=== PATIENT | female | born 1935 | race Caucasian/White ===

== ENCOUNTER 2021-03-01 08:09 | Emergency (ER) | payer MEDICARE, OTHER ==
[~2021-03-01] VITALS: Ht 167.6 cm; Wt 70.9 kg
[2021-03-01 08:40] LABS: HEMATOCRIT 42.7 % (37.0-47.0); HEMOGLOBIN 13.6 g/dl (12.0-16.0); IMMATURE GRANULOCYTES 0.8 % (0.0-5.0); MEAN CELL VOLUME 90.3 fL CALC (80.0-100.0); MEAN CORPUSCULAR HGB 28.8 pG CALC (26.0-32.0); MEAN CORPUSCULAR HGB CONC 31.9 g/dL CAL (32.0-36.0); NEUT# 7.26 thou/uL (2.00-7.15); RED BLOOD COUNT 4.73 mill/uL (4.20-5.60); RED CELL DISTRI WIDTH 13.9 % (11.5-15.5)
[2021-03-01 08:57] LABS: ALBUMIN 3.7 g/dL (3.2-5.0); ALKALINE PHOSPHATASE 108 u/l (38-126); ANION GAP 9 (6-22 (CALC)); BILIRUBIN, TOTAL 0.5 mg/dL (0.0-1.4); BUN 21 mg/dL (8-23); BUN/CREATININE RATIO 25 (12-20 (CALC)); CARBON DIOXIDE 28 mmol/l (22-30); CHLORIDE 106 mmol/l (95-108); CREATININE 0.8 mg/dL (0.5-1.0); GFR > 60 ML/MIN (>=60 (CALC)); GFR FOR AFR.AMER. > 60 ML/MIN (>=60 (CALC)); POTASSIUM 3.8 mmol/l (3.5-5.1); SGOT/AST 27 u/l (9-36); SODIUM 139 mmol/l (137-146); TOTAL PROTEIN 7.6 g/dL (6.3-8.2)
[2021-03-01 09:36] LABS: URINE BILIRUBIN - DIPSTICK NEGATIVE (NEGATIVE); URINE BLOOD DIPSTICK TRACE-INTACT (NEGATIVE); URINE COLOR YELLOW; URINE GLUCOSE - DIPSTICK NEGATIVE (NEGATIVE); URINE KETONE NEGATIVE (NEGATIVE); URINE PH 6.5 (4.5-8.0); URINE PROTEIN - DIPSTICK NEGATIVE (NEG-TRACE); URINE UROBILINOGEN - DIPSTICK 0.2 E.U./dL (0.2)
[2021-03-01 09:37] LABS: URINE LEUK ESTERASE LARGE (NEGATIVE); URINE NITRITE - DIPSTICK POSITIVE (Negative)
[2021-03-01 09:38] LABS: URINE BACTERIA MODERATE hpf; URINE EPITHELIAL CELLS FEW EPI/hpf (0-FEW); URINE RBC 0-2 RBC/hpf (0-5)
[2021-03-01 11:01] VITALS: BP 160/68
--- NOTE | 2021-03-04 07:57 | NUR ---
FINAL BLOOD CX RESULTS SHOW STAPH COHNII IN 1/4 VIALS. REPORTED TO ANN AT [facility] AND FAXED TO [phone]
== END 2021-03-01 11:18 | disposition short-term general hospital (02) ==
LOC: ED 08:09
PROVIDERS: Family Medicine
PROC: 0T9B70Z Drainage of Bladder with Drainage Device, Via Natural or Artificial Opening (ICD-10-PCS; principal; 2021-03-01)
DX: S72.142A Displaced intertrochanteric fracture of left femur, initial encounter for closed fracture (principal); S42.292A Other displaced fracture of upper end of left humerus, initial encounter for closed fracture; N39.0 Urinary tract infection, site not specified; R42 Dizziness and giddiness; I10 Essential (primary) hypertension; B96.20 Unspecified Escherichia coli [E. coli] as the cause of diseases classified elsewhere; W19.XXXA Unspecified fall, initial encounter; Y92.009 Unspecified place in unspecified non-institutional (private) residence as the place of occurrence of the external cause

== ENCOUNTER 2021-08-25 11:54 | Observation (INO) | payer MEDICARE, OTHER ==
[~2021-08-25] VITALS: Ht 167.6 cm; Wt 65.8 kg
--- NOTE | 2021-08-25 12:10 | NUR ---
PATIENT ROOMED FROM LOBBY. PROVIDER NOTIFIED OF PATIENT STATUS.
[2021-08-25] MEDS ORDERED: COZAAR50 MG PO (12:14)
[2021-08-25] MEDS ORDERED: CLONIDINE HYDR0.1 M1 PO (12:15)
[2021-08-25] MEDS ORDERED: PANTOPRAZOLE SO40 M3 PO (12:16)
[2021-08-25] MEDS ORDERED: VERAPAMIL HCL80 MG PO (12:16)
[2021-08-25 12:30] LABS: HEMATOCRIT 45.8 % (37.0-47.0); HEMOGLOBIN 14.5 g/dl (12.0-16.0); IMMATURE GRANULOCYTES 0.1 % (0.0-5.0); MEAN CELL VOLUME 88.6 fL CALC (80.0-100.0); MEAN CORPUSCULAR HGB CONC 31.7 g/dL CAL (32.0-36.0); NEUT# 4.48 thou/uL (2.00-7.15); RED BLOOD COUNT 5.17 mill/uL (4.20-5.60); RED CELL DISTRI WIDTH 15.1 % (11.5-15.5)
[2021-08-25 12:42] LABS: ALBUMIN 4.3 g/dL (3.2-5.0); ALKALINE PHOSPHATASE 148 u/l (38-126); ANION GAP 13 (6-22 (CALC)); BILIRUBIN, TOTAL 0.4 mg/dL (0.0-1.4); BUN 12 mg/dL (8-23); BUN/CREATININE RATIO 17 (12-20 (CALC)); CARBON DIOXIDE 26 mmol/l (22-30); CHLORIDE 105 mmol/l (95-108); CREATININE 0.7 mg/dL (0.5-1.0); GFR FOR AFR.AMER. > 60 ML/MIN (>=60 (CALC)); GFR OTHER RACES > 60 ML/MIN (>=60 (CALC)); POTASSIUM 3.5 mmol/l (3.5-5.1); SGOT/AST 22 u/l (9-36); SODIUM 140 mmol/l (137-146); TOTAL PROTEIN 8.1 g/dL (6.3-8.2)
--- NOTE | 2021-08-25 15:41 | NUR ---
PT RESTING IN BED
--- NOTE | 2021-08-25 19:59 | NUR ---
REPORT CALLED TO CASA ON FLOOR
--- NOTE | 2021-08-25 19:59 | NUR ---
PT TRANSFERRED TO FLOOR
[2021-08-25 20:02] VITALS: BP 165/60
--- NOTE | 2021-08-25 20:30 | NUR ---
PATIENT ADMITTED FROM ER VIA STRETCHER WITH ER STAFF IN ATTENDANCE. PATIENT TRRANSFERRED TO THE BED. AWAKE ALERT AND ORIENTEDX3. PATIENT ADMITTED FOR CHEST AND HTN. STATES THAT SHE WENT TO THE DOCTOR THIS MORNING AND HER BP WAS HIGH-DOCTOR REFERRED HER TO COME TO THE ER AND SHE WAS BROUGHT IN BY HER DAUGHTER. STATES THAT SHE HAS VERY LITTLE "CHEST TIGHTNESS" AT THIS TIME. TELE MONITOR IN PLACE AND READING SR-82. SALINE LOCK TO RAC INTACT. LUNG ARE CLEAR. ABD IS SOFT WITH ACTIVE BS. STATES THAT HER LAST BM WAS YESTERDAY 08/24/21. PATIENT DOES HAVE SOME URINE INCONT AND WEARS BREIF FOR PROTECTION. NO PEDAL EDEMA NOTED. PULSES ARE PALPABLE. ORIENTED PATIENT TO ROOM AND SURROUNDINGS. INSTRUCTED PATIENT ON USE OF NURSE CALL LIGHT SYSTEM AND TV REMOTE. PATIENT IS [place]LLA. SAFETY PRECAUTIONS REINFORCED. CALL LIGHT IN REACH. WILL CONT TO MONITOR.
[2021-08-26] VITALS (9 sets, daily range): BP systolic 126–184; BP diastolic 41–78
--- NOTE | 2021-08-26 | NUR ---
PATIENT CALLED AND RESPONDED TO ROOM-ASSISTED TO THE BR TO VOID AND THEN BACK TO BED. STEADY ON HER FEET WITH ASSIST-BREIF WAS REPLACED FOR PROTECT PER PATIENT. TELE MONITOR IN PLACE-LAST READING WAS SR-64. NO CHEST PAIN AT THIS TIME. LAST TROP WAS NEG. SAFETY PRECAUTIONS REINFORCED. CALL LIGHT IN REACH. WILL CONT TO MONITOR.
[2021-08-26 04:10] LABS: CHOLESTEROL HDL RATIO 3.7 (<4.4 (CALC)); MAGNESIUM 1.8 mg/dL (1.6-2.3)
--- NOTE | 2021-08-26 04:58 | NUR ---
PATIENT RESTING IN BED-VS TAKEN ANBD RECORDED. TELE MONITOR IN PLACE-SR-72. SALINE LOCK INTACT RAC. NO COMPLAINTS AT THIS TIME. CALL LIGHT IN REACH. WILL CONT TO MONITOR,
--- NOTE | 2021-08-26 06:12 | NUR ---
PATIENT RESTING INBED WITH EYES CLOSED. RESPS ARE EVEN AND UNLABORED. TELE MONITOR IN PLACE-LAST READING SR 720. CALL LIGHT IN REACH. WILL CONT TO MONITOR.
--- NOTE | 2021-08-26 08:00 | NUR ---
GOT REPORT FROM JUNIOR BRAND MANAGER NURSE. PATIENT ASSESSED, AOX3. PATIENT BLOOD PRESSURE ELEVATED. GIVEN MEDICATION TO HELP IT. PATIENT DENIES ANY CHEST PAIN OR DISCOMFORT AT THIS TIME. CALL LIGHT AND BEDSIDE TABLE WITH IN REACH. ADVISED TO CALL IF ANY PROBLEMS. PATIENT VERBALIZED UNDERSTANDING.
--- NOTE | 2021-08-26 09:36 | NUR ---
CALLED DR. VOGT OFFICE REGARDING CONSULTATION ON THIS PT. SPOKE TO SADAF GAVE INFORMATION ON PT. WAS TOLD SHE WOULD LET DR VOGT KNOW ABOUT THE CONSULTATION.
--- NOTE | 2021-08-26 11:43 | NUR ---
Patient is screened for PT intervention and no needs are identified at this time
--- NOTE | 2021-08-26 12:00 | NUR ---
PATIENT SLEEPING. CALL LIGHT AND BEDSIDE TABLE WITH IN REACH
--- NOTE | 2021-08-26 16:00 | NUR ---
PATIENT WATCHING TV, NO SXS OF DISTRESS. NO NEEDS AT THIS TIME.
--- NOTE | 2021-08-26 19:45 | NUR ---
PATIENT SITTING UP IN THE BED AT THIS TIME-AWAKE ALERT AND ORIENTEDX3. O2 VIA NASAL CANNULA IN PLACE AT 2LPM WITH O2 SAT OF 93%. TELE MONITOR IN PLACE WITH LAST READING SR-70''S. LUNGS ARE CLEAR, ABD IS SOFT WITH ACTIVE BS. STATES THAT SHE DID HAVE BM TODAY AND DENIES DIFFICULTY WITH URINATION. DOES WEAR BREIF FOR STRESS INCONT. C/O SLIGHT HEADACHE-MEDICATED WITH TYLENOL 650MG PO FOR 3/10 PAIN SCALE. SAFETY PRECAUTIONS REINFORCED. CALL LIGHT IN REACH. WILL CONT TO MONITOR.
--- NOTE | 2021-08-26 21:34 | NUR ---
PATIENT SITTING UP IN BED AT THIS TIME-AWAKE ALERT AND ORIENTEDX3. O2 VIA NASAL CANNULA IN PLACE AT 2LPM WITH O2 SAT OF 93%. TELE MONITOR IN PLACE WITH LAST READING SR-70'S. LUNGS ARE CLEAR. ABD IS SOFT WITH ACVTIVE BS. STATES THAT SHE DID HAVE BM TODAY. DENIES ANY DIFFICULTY WITH URINATION. DOES WEAR BREIF FOR PROTECTION FOR STRESS INCONT. C/O SLIGHT HEADACHE. MEDICATED WITH TYLENOL 650MG PO FOR 3/10 PAIN SCALE. SAFETY PRECAUTIONS REINFORCED. CALL LIGHT IN REACH. WILL CONT TO MONITOR.
--- NOTE | 2021-08-27 00:07 | NUR ---
PATIENT RESTING IN BED AT THIS TIME WITH EYES CLOSED. RESPS ARE EVEN AND UNLABORED. TELE MONITOR IN PLACE. CALL LIGHT IN REACH. WILL CONT TO MONITOR.
[2021-08-27 00:29] VITALS: BP 141/54
[2021-08-27 04:33] VITALS: BP 156/67
--- NOTE | 2021-08-27 04:43 | NUR ---
PATIENT UP TO BR WITH ASSIST AND VOIDED 175CC OF YELLOW URINE. MION ASSIST BACK TO BED. DAILY WEIGHT ON BED SCALE WAS 65.8. TELE MONITOR IN PLACE WITH LAST READING BEING SR-60. SALINE LOCK TO RAC INTACT. CALL LIGHT IN REACH. WILL CONT TO MONITOR,.
[2021-08-27 05:47] LABS: HEMATOCRIT 40.4 % (37.0-47.0); HEMOGLOBIN 12.9 g/dl (12.0-16.0); IMMATURE GRANULOCYTES 0.4 % (0.0-5.0); MEAN CELL VOLUME 89.2 fL CALC (80.0-100.0); MEAN CORPUSCULAR HGB 28.5 pG CALC (26.0-32.0); MEAN CORPUSCULAR HGB CONC 31.9 g/dL CAL (32.0-36.0); NEUT# 4.31 thou/uL (2.00-7.15); RED BLOOD COUNT 4.53 mill/uL (4.20-5.60); RED CELL DISTRI WIDTH 15.1 % (11.5-15.5)
[2021-08-27 06:07] LABS: ANION GAP 9 (6-22 (CALC)); BUN 19 mg/dL (8-23); BUN/CREATININE RATIO 26 (12-20 (CALC)); CARBON DIOXIDE 26 mmol/l (22-30); CHLORIDE 108 mmol/l (95-108); CREATININE 0.7 mg/dL (0.5-1.0); GFR FOR AFR.AMER. > 60 ML/MIN (>=60 (CALC)); GFR OTHER RACES > 60 ML/MIN (>=60 (CALC)); MAGNESIUM 1.9 mg/dL (1.6-2.3); POTASSIUM 4.1 mmol/l (3.5-5.1); SODIUM 139 mmol/l (137-146)
[2021-08-27 06:26] VITALS: BP 140/60
--- NOTE | 2021-08-27 08:00 | NUR ---
GOT REPORT FROM NETWORK SPECIALIST NURSE. PATIENT IS IN BED WATCHING TV AND COLORING. ASSESSED. AOX3. DENIES ANY CHEST PAIN OR TIGHTNESS AT THIS TIME. WINIFRED STATES THAT SHE FEELS REALLY GOOD AND IN HOPES OF GOING HOME TODAY. CALL LIGHT AND BEDSIDE TABLE WITHIN REACH. ADVISE TO CALL IF SHE NEEDS ANYTHING. PATIENT VERBALIZED UNDERSTANDING.
[2021-08-27 10:37] VITALS: BP 140/63
[2021-08-27] MEDS ORDERED: LOSARTAN POTAS100 MG PO (12:34)
[2021-08-27] MEDS ORDERED: VERAPAMIL HCL180 M5 PO (12:35)
[2021-08-27] MEDS ORDERED: LASIX 20 MG TAB20 MG PO (12:36)
--- NOTE | 2021-08-27 14:04 | NUR ---
Discharge instructions given. Patient verbalizes understanding of same. Discharged in stable condition via Wheelchair to Home with family. All belongings sent with pt.
[2021-08-27] MEDS ORDERED: METOPROLOL SUCC50 MG PO (14:06)
[2021-08-27] MEDS ORDERED: LIPITOR80 M1 PO (14:12)
== END 2021-08-27 14:04 | disposition home health service (06) ==
LOC: ED 11:54 → ED-I 12:29 → ED 12:29 → ED-I 13:02 → ED 13:41 → MS2 13:42
PROVIDERS: Family Medicine; Nurse Practitioner; ADMIT Internal Medicine; ATTEND Internal Medicine
DX: I20.9 Angina pectoris, unspecified (principal); I44.7 Left bundle-branch block, unspecified; I47.9 Paroxysmal tachycardia, unspecified; I10 Essential (primary) hypertension; K21.9 Gastro-esophageal reflux disease without esophagitis; I65.23 Occlusion and stenosis of bilateral carotid arteries; R79.89 Other specified abnormal findings of blood chemistry; Z20.822 Contact with and (suspected) exposure to COVID-19
CPT/HCPCS: J1650; Q9967

== ENCOUNTER 2021-11-11 16:42 | Observation (INO) | payer MEDICARE, OTHER ==
[~2021-11-11] VITALS: Ht 167.6 cm; Wt 64.0 kg
[2021-11-11] VITALS (22 sets, daily range): BP systolic 131–181; BP diastolic 50–67
[~2021-11-11 16:42] MED LIST: CLONIDINE HYDR0.1 M1 PO; COZAAR50 MG PO; LASIX 20 MG TAB20 MG PO; LIPITOR80 M1 PO; LOSARTAN POTAS100 MG PO; METOPROLOL SUCC50 MG PO; PANTOPRAZOLE SO40 M3 PO; VERAPAMIL HCL180 M5 PO; VERAPAMIL HCL80 MG PO
--- NOTE | 2021-11-11 16:55 | NUR ---
PT ARRIVED VIA EMS, PT IN ROOM ON MONITOR AWAITING LAB RESULTS.
[2021-11-11 16:59] LABS: HEMOGLOBIN 11.9 g/dl (12.0-16.0); IMMATURE GRANULOCYTES 0.2 % (0.0-5.0); MEAN CELL VOLUME 85.7 fL CALC (80.0-100.0); MEAN CORPUSCULAR HGB 28.3 pG CALC (26.0-32.0); MEAN CORPUSCULAR HGB CONC 33.1 g/dL CAL (32.0-36.0); NEUT# 6.76 thou/uL (2.00-7.15); RED BLOOD COUNT 4.2 mill/uL (4.20-5.60); RED CELL DISTRI WIDTH 14.2 % (11.5-15.5)
[2021-11-11 17:20] LABS: ALKALINE PHOSPHATASE 119 u/l (38-126); ANION GAP 13 (6-22 (CALC)); BILIRUBIN, TOTAL 0.3 mg/dL (0.0-1.4); BUN 23 mg/dL (8-23); BUN/CREATININE RATIO 28 (12-20 (CALC)); CARBON DIOXIDE 25 mmol/l (22-30); CHLORIDE 107 mmol/l (95-108); CREATININE 0.8 mg/dL (0.5-1.0); GFR FOR AFR.AMER. > 60 ML/MIN (>=60 (CALC)); GFR OTHER RACES > 60 ML/MIN (>=60 (CALC)); POTASSIUM 3.3 mmol/l (3.5-5.1); SGOT/AST 24 u/l (9-36); SODIUM 141 mmol/l (137-146); TOTAL PROTEIN 7.7 g/dL (6.3-8.2)
--- NOTE | 2021-11-11 17:20 | NUR ---
PT IN ROOM ON MONITOR AWAITING LAB RESULTS.
--- NOTE | 2021-11-11 18:08 | NUR ---
PT TO BE ADMITTED
--- NOTE | 2021-11-11 19:02 | NUR ---
PT IN ROOM ON MONITOR AWAITING BED FOR ADMISSION.
--- NOTE | 2021-11-11 19:56 | NUR ---
PT IN ROOM ON MONITOR PENDING ADMISSION, WILL CONT TO MONITOR.
[2021-11-11] MEDS ORDERED: ASPIRIN81 MG PO (20:27)
[2021-11-11] MEDS ORDERED: FUROSEMIDE20 MG PO (20:27)
[2021-11-11] MEDS ORDERED: LOSARTAN POTASS50 MG PO (20:27)
[2021-11-11] MEDS ORDERED: METOPROLOL TART50 MG PO (20:29)
--- NOTE | 2021-11-11 20:45 | NUR ---
PUREWICK APPLIED. REPOSITIONED/PILLOW GIVEN.
--- NOTE | 2021-11-11 21:20 | NUR ---
ATTEMPT TO CALL REPORT TO [employer] MADE, UNABLE TO TAKE REPORT AT THIS TIME.
--- NOTE | 2021-11-11 22:00 | NUR ---
REPORT CALLED TO SOFIA TAMAYO.
--- NOTE | 2021-11-11 22:03 | NUR ---
REPORT GIVEN TO JOSE TAMAYO WHO WILL BE TRANSPORTING PT TO FLOOR.
--- NOTE | 2021-11-11 22:31 | NUR ---
Admission Note Report Given to: SOFIA TAMAYO Transported by: Wheelchair X Stretcher Transported with: X Nurse Transporter X Patent IV O2 X Transmission Maintenance Supervisor Location: ICU X MS2 PT ADMITTED TO [facility], TRANSPORTED VIA STRETCHER BY KHLOE TAMAYO, ON TELE.
[2021-11-12] VITALS (9 sets, daily range): BP systolic 133–167; BP diastolic 43–100
--- NOTE | 2021-11-12 | NUR ---
PT ADMITTED DUE TO SYNCOPAL EPISODE. PT ALERT AND ORIENTED, BUT VERY HARD OF HEARING. PT DENIES PAIN AT THIS TIME. PT EDUCATION PROVIDED REGARDING FALL PREVENTION AND TO CALL FOR ASSISTANCE WHEN GETTING OUT OF BED. PTS BED ALARM ON. VITAL SIGNS ARE WITHIN NORMAL LIMITS. CALL LIGHT WITHIN REACH. PT BEING CLOSELY MONITORED.
--- NOTE | 2021-11-12 07:21 | NUR ---
BEDSIDE SHIFT CHANGE REPORT WITH NIGHT RN PERFORMED, PT AWAKE ALERT AND ORIENTED RESTING IN BED, DENIES PAIN/DISCOMFORT, QUESTIONS ANSWERED, TELE MONITOR IN PLACE, CALL BERNARD IN REACH AND BED LOCKED IN LOWEST POSITION.
[2021-11-12 07:56] LABS: HEMATOCRIT 34.6 % (37.0-47.0); HEMOGLOBIN 11.2 g/dl (12.0-16.0); IMMATURE GRANULOCYTES 0.1 % (0.0-5.0); MEAN CELL VOLUME 86.5 fL CALC (80.0-100.0); MEAN CORPUSCULAR HGB CONC 32.4 g/dL CAL (32.0-36.0); NEUT# 6.16 thou/uL (2.00-7.15); RED CELL DISTRI WIDTH 14.2 % (11.5-15.5)
[2021-11-12 08:22] LABS: ALBUMIN 3.3 g/dL (3.2-5.0); ALKALINE PHOSPHATASE 114 u/l (38-126); ANION GAP 12 (6-22 (CALC)); BILIRUBIN, TOTAL 0.3 mg/dL (0.0-1.4); BUN 20 mg/dL (8-23); BUN/CREATININE RATIO 26 (12-20 (CALC)); CARBON DIOXIDE 23 mmol/l (22-30); CHLORIDE 109 mmol/l (95-108); CREATININE 0.8 mg/dL (0.5-1.0); GFR FOR AFR.AMER. > 60 ML/MIN (>=60 (CALC)); GFR OTHER RACES > 60 ML/MIN (>=60 (CALC)); HDL CHOLESTEROL 49 mg/dL (>=40); MAGNESIUM 1.6 mg/dL (1.6-2.3); POTASSIUM 3.9 mmol/l (3.5-5.1); SGOT/AST 22 u/l (9-36); SODIUM 140 mmol/l (137-146); TOTAL TRIGLYCERIDES 98 mg/dl (30-149); VLDL CHOLESTROL 20 mg/dl (0-48 (CALC))
[2021-11-12 08:26] LABS: CALCULATED LDLCHOLESTEROL 69 mg/dL (62-129 (CALC)); CHOLESTEROL HDL RATIO 2.8 (<4.4 (CALC)); TOTAL CHOLESTEROL 138 mg/dl (0-199); TOTAL PROTEIN 6.1 g/dL (6.3-8.2)
--- NOTE | 2021-11-12 12:00 | NUR ---
INFORMED OF CAROTID ULTRA SOUND, TRANSPORTED OFF UNIT VIA W/C BY VOLUNTEER, HAD PROCEDURE DONE AND TRANSPORTED BACK TO UNIT, SETTLED IN BED, CALL BERNARD IN REACH.
--- NOTE | 2021-11-12 16:04 | NUR ---
RELAXING IN BED AFTER TOILETTING, DOING CREATIVE TALKS NOW OF COLORING AND ENJOYING THE ACTIVITY, ALL NEEDS MET/ADDRESSED.
--- NOTE | 2021-11-12 19:00 | NUR ---
PT IS UPSET ABOUT BEING SERVED PUREED FOODS, STATES SHE DOES NOT HAVE CHEWING OR SWALLOWING DIFFICULTIES, HAS NOT BEEN EATING AND NEEDS REGULAR FOODS, WILL ADDRESS CONCERNS REQUESTED AND INFORM MD AND DIETARY.
--- NOTE | 2021-11-12 19:15 | NUR ---
PT OFFERED TV DINNER WHICH SHE GREATLY APPRECIATED.
--- NOTE | 2021-11-12 19:45 | NUR ---
PATIENT RESTING IN BED. ALERT AND ORIENTED. ABLE TO MAKE NEEDS KNOWN. DENIES ANY PAIN. NO DISTRESS NOTED. ASSESSMENT COMPLETE. PATIENT ABLE TO MOVE HERSELF UP IN BED. BED REMAINS IN LOW POSITION. CALL LIGHT IN REACH.
--- NOTE | 2021-11-12 21:45 | NUR ---
NOTIFIED MD OF PATIENTS HR RANGING FROM 39-MID 40S. PATIENT ASYMPTOMATIC. NO COMPLAINTS. MD TO PUT NEW ORDER IN EMAR.
--- NOTE | 2021-11-12 22:12 | NUR ---
CALLED MD TO INFORM HIS OF PHARMACY CALLING WANTING CLARIFICATION ON MEDICATION DOSE.
--- NOTE | 2021-11-12 22:53 | NUR ---
NOTIFIED MD OF DOSE FOR GLUCAGON WAS MAX DOSE FOR HOSPITAL. INFORMED MD OF WHAT HEART RATE WAS RUNNING ON TELE. MD GAVE ORDER TO DC MEDICATION. PATIENT TO CONTINUE TO BE MONITORED. VS STABLE AT THIS TIME.
[2021-11-13 00:09] VITALS: BP 119/39
--- NOTE | 2021-11-13 00:30 | NUR ---
PATIENT RESTING IN BED. NO COMPLAINTS VOICED AT THIS TIME. BED REMAINS IN LOW POSITION. CALL LIGHT IN REACH.
[2021-11-13 03:16] VITALS: BP 132/47
--- NOTE | 2021-11-13 04:18 | NUR ---
PATIENT RESTING IN BED WITH HOB ELEVATED. NO SIGNS OF DISTRESS. NO COMPLAINTS OF PAIN. PATIENT REMAINS ALERT. BED REMAINS IN LOW POSITION. CALL LIGHT IN REACH.
[2021-11-13 05:16] LABS: HEMOGLOBIN 10.8 g/dl (12.0-16.0); IMMATURE GRANULOCYTES 0.2 % (0.0-5.0); MEAN CELL VOLUME 86.6 fL CALC (80.0-100.0); MEAN CORPUSCULAR HGB 28.3 pG CALC (26.0-32.0); MEAN CORPUSCULAR HGB CONC 32.7 g/dL CAL (32.0-36.0); NEUT# 5.52 thou/uL (2.00-7.15); RED BLOOD COUNT 3.81 mill/uL (4.20-5.60); RED CELL DISTRI WIDTH 14.3 % (11.5-15.5)
[2021-11-13 05:37] LABS: ALBUMIN 3.4 g/dL (3.2-5.0); ALKALINE PHOSPHATASE 117 u/l (38-126); ANION GAP 9 (6-22 (CALC)); BILIRUBIN, TOTAL 0.3 mg/dL (0.0-1.4); BUN 24 mg/dL (8-23); BUN/CREATININE RATIO 30 (12-20 (CALC)); CARBON DIOXIDE 25 mmol/l (22-30); CHLORIDE 110 mmol/l (95-108); CREATININE 0.8 mg/dL (0.5-1.0); GFR FOR AFR.AMER. > 60 ML/MIN (>=60 (CALC)); GFR OTHER RACES > 60 ML/MIN (>=60 (CALC)); POTASSIUM 4.1 mmol/l (3.5-5.1); SGOT/AST 24 u/l (9-36); SODIUM 140 mmol/l (137-146); TOTAL PROTEIN 6.5 g/dL (6.3-8.2)
[2021-11-13 07:00] VITALS: BP 169/59
[2021-11-13 07:04] VITALS: BP 169/59
[2021-11-13 07:22] VITALS: BP 177/65
--- NOTE | 2021-11-13 08:00 | NUR ---
GOT REPORT FROM WORKFORCE PLANNING ANALYST NURSE. PATIENT ASSESSED. AOX4. PATIENT IS EATING BF WITH NO COMPLAINTS. STATES THAT SHE IS DOING GREAT AND IS READY TO GO HOME. ADVISED THAT THE DOCTOR IS IN THE ROUNDS NOW AND WILL BE IN TO DISCUSS PLAN OF CARE. PATIENT VERBALIZED UNDERSTANDING. I ASSISTED PATIENT TO BSC TO VOID AND ASSISTED HER BACK TO BED. PATIENT HAS CALL LIGHT AND BEDSIDE TABLE WITH IN REACH. ADVISED TO CALL IF SHE NEEDED ANYTHING. PATIENT VERBALIZED UNDERSTANDING.
[2021-11-13 10:21] VITALS: BP 157/54
--- NOTE | 2021-11-13 12:00 | NUR ---
PATIENT IS BACK INTO BED RESTING. NO SXS OF DISTRESS. CALL LIGHT AND BEDSIDE TABLE WITH IN REACH. FALL PRECAUTIONS IN PLACE.
--- NOTE | 2021-11-13 15:00 | NUR ---
Discharge instructions given. Patient verbalizes understanding of same. Discharged in stable condition via Wheelchair to Home with family. All belongings sent with pt.
== END 2021-11-13 15:00 | disposition home health service (06) ==
LOC: ED 16:42 → ED-I 18:10 → ED 19:28 → MS2 19:29
PROVIDERS: Family Medicine; Internal Medicine; Nurse Practitioner; ADMIT Internal Medicine; ATTEND Internal Medicine
DX: R55 Syncope and collapse (principal); R07.89 Other chest pain; R00.1 Bradycardia, unspecified; I44.7 Left bundle-branch block, unspecified; E87.6 Hypokalemia; I11.0 Hypertensive heart disease with heart failure; I50.9 Heart failure, unspecified; K21.9 Gastro-esophageal reflux disease without esophagitis; I65.23 Occlusion and stenosis of bilateral carotid arteries; Z94.7 Corneal transplant status; Z20.822 Contact with and (suspected) exposure to COVID-19
CPT/HCPCS: G0378

== ENCOUNTER 2022-01-26 10:16 | Observation (INO) | payer MEDICARE, OTHER ==
[2022-01-26] VITALS (12 sets, daily range): BP systolic 110–146; BP diastolic 43–88
[~2022-01-26] VITALS: Ht 167.6 cm; Wt 65.0 kg
[~2022-01-26 10:16] MED LIST changes: +ASPIRIN81 MG PO; +FUROSEMIDE20 MG PO; +LOSARTAN POTASS50 MG PO; +METOPROLOL TART50 MG PO
--- NOTE | 2022-01-26 10:16 | NUR ---
PATIENT TO ED VIA EMS. ALERT AND ORIENTED X3.
[2022-01-26 10:33] LABS: HEMATOCRIT 35.8 % (37.0-47.0); HEMOGLOBIN 11.6 g/dl (12.0-16.0); IMMATURE GRANULOCYTES 0.2 % (0.0-5.0); MEAN CELL VOLUME 88.6 fL CALC (80.0-100.0); MEAN CORPUSCULAR HGB 28.7 pG CALC (26.0-32.0); MEAN CORPUSCULAR HGB CONC 32.4 g/dL CAL (32.0-36.0); NEUT# 7.25 thou/uL (2.00-7.15); RED BLOOD COUNT 4.04 mill/uL (4.20-5.60); RED CELL DISTRI WIDTH 14.5 % (11.5-15.5)
--- NOTE | 2022-01-26 10:36 | NUR ---
MED REC COMPLETED WITH PATIENT, DOES NOT KNOW ALL OF HER HOME MEDS
[2022-01-26 10:47] LABS: ALBUMIN 3.9 g/dL (3.2-5.0); ALKALINE PHOSPHATASE 122 u/l (38-126); ANION GAP 11 (6-22 (CALC)); BILIRUBIN, TOTAL 0.3 mg/dL (0.0-1.4); BUN 22 mg/dL (8-23); BUN/CREATININE RATIO 26 (12-20 (CALC)); CARBON DIOXIDE 26 mmol/l (22-30); CHLORIDE 109 mmol/l (95-108); CREATININE 0.9 mg/dL (0.5-1.0); GFR FOR AFR.AMER. > 60 ML/MIN (>=60 (CALC)); GFR OTHER RACES 59 ML/MIN (>=60 (CALC)); POTASSIUM 3.6 mmol/l (3.5-5.1); SGOT/AST 39 u/l (9-36); SODIUM 142 mmol/l (137-146); TOTAL PROTEIN 7.4 g/dL (6.3-8.2)
--- NOTE | 2022-01-26 11:36 | NUR ---
URINE SAMPLE COLLECTED. FAMILY AT BEDSIDE. UPDATED ON PLAN OF CARE. VERBAL UNDERSTANDING
[2022-01-26 12:05] LABS: URINE BILIRUBIN - DIPSTICK NEGATIVE (NEGATIVE); URINE BLOOD DIPSTICK NEGATIVE (NEGATIVE); URINE COLOR YELLOW; URINE GLUCOSE - DIPSTICK NEGATIVE (NEGATIVE); URINE KETONE NEGATIVE (NEGATIVE); URINE LEUK ESTERASE NEGATIVE (NEGATIVE); URINE PROTEIN - DIPSTICK NEGATIVE (NEG-TRACE); URINE UROBILINOGEN - DIPSTICK 0.2 E.U./dL (0.2)
[2022-01-26 12:06] LABS: URINE NITRITE - DIPSTICK POSITIVE (Negative)
[2022-01-26 12:07] LABS: URINE BACTERIA MODERATE hpf; URINE EPITHELIAL CELLS FEW EPI/hpf (0-FEW)
--- NOTE | 2022-01-26 12:20 | NUR ---
PATIENT CLEANED OF INCONTENANCE
--- NOTE | 2022-01-26 13:09 | NUR ---
PATIENT PROSPECTING DRILLER HELPER LIGHT REQUESTING TO BE SEEN BY PROVIDER. AT BEDSIDE
--- NOTE | 2022-01-26 14:30 | NUR ---
800 ML OF URINE EMPTIED FROM CONTAINER.
--- NOTE | 2022-01-26 14:40 | NUR ---
Admission Note Report Given to: BELKIS BAZAN Transported by: Wheelchair X Stretcher Transported with: X Nurse Transporter X Patent IV O2 X Hall Tender Location: ICU X MS2 PATIENT BELONGINGS SENT WITH PATIENT, INCUDING FUEL ASSEMBLER BAG, CHILD SHOES AND BLACK JACKET
--- NOTE | 2022-01-26 15:00 | NUR ---
REPORT RECEIVED FROM BENI. PT ARRIVED IN UNIT AT APPROXIMATELY 1500 TRANSPORTED VIA STRETCHER AND TRANSFERRED TO BED, ALERT AND ORIENTED X 3, NO C/O PAIN/DISCOMFORT, ORIENED TO ROOM AND CALL BERNARD, SETTLED IN BED, NEEDS ADDRESSED, EDUCATED ON FALL PRECAUTIONS AND STATED UNDERSTANDING, WILL CONTINUE TO MONITOR.
--- NOTE | 2022-01-26 15:09 | NUR ---
Admission Note Report Given to: BELKIS BAZAN Transported by: Wheelchair X Stretcher Transported with: X Nurse Transporter X Patent IV O2 X Physics Faculty Member Location: ICU X MS2 PATIENT BELONGINGS SENT WITH PATIENT, SHIRT, SHOES, BACK PURSE.
--- NOTE | 2022-01-26 15:52 | NUR ---
I CALLED IN A PHYSICIAN CONSULTATION TO DR VOGT'S OFFICE ON 01/26/2022. I SPOKE WITH KURT AT 1551 hrs.
--- NOTE | 2022-01-26 19:15 | NUR ---
PER PATIENT HER DAUGHTER BROUGHT ALL HER MEDICATION IN TONIGHT AND SHE HAS HAD EVEYRTHING THAT WAS DUE TONIGHT.
--- NOTE | 2022-01-26 19:15 | NUR ---
REPORT RECEIVED FROM Alanna REYNAGA RN.
[2022-01-26] MEDS ORDERED: ATORVASTATIN CA80 MG PO (20:42)
[2022-01-26] MEDS ORDERED: METOPROLOL SUCC50 MG PO (20:45)
[2022-01-26] MEDS ORDERED: AMLODIPINE BESY10 MG PO (20:47)
[2022-01-26] MEDS ORDERED: ISOSORB MONO30 MG PO (20:47)
[2022-01-27] VITALS (10 sets, daily range): BP systolic 117–137; BP diastolic 42–60
--- NOTE | 2022-01-27 | NUR ---
PATIENT UP TO THE BATHROOM AT THIS TIME. EXPRESSES SOME CONCER REGARDING MORE FREQUENT BOWEL MOVEMENTS. ADVISED PATIENT THAT WE WOULD COLLECT THE NEXT STOOL.
--- NOTE | 2022-01-27 04:45 | NUR ---
PATIENT RESTING COMOFRTABLY. NO APPARENT DISTRESS NOTED. CALL LIGHT AND BEDSIDE TABLE WITHIN REACH.
--- NOTE | 2022-01-27 07:05 | NUR ---
REPORT FROM AMBER TAMAYO. ASSUMED PT CARE.
--- NOTE | 2022-01-27 08:20 | NUR ---
ORTHOSTATIC VS OBTAINED AT THIS TIME. NOTIFIED ALLAN HAND FORMER OF HR CHANGES. WILL CONTINUE TO MONITOR.
--- NOTE | 2022-01-27 12:10 | NUR ---
PT SITTING UP IN BED EATING LUNCH. NO APPARENT DISTRESS NOTED. RESPIRATIONS EVEN AND UNLABORED. PT DENIES ANY CURRENT WANTS OR NEEDS. CALL LIGHT WITHIN REACH. WILL CONTINUE TO MONITOR.
--- NOTE | 2022-01-27 16:29 | NUR ---
PT RESTING IN BED. NO APPARENT DISTRESS NOTED. PURWIK IN PLACE. CALL LIGHT WITHIN REACH. WILL CONTINUE TO MONITOR.
--- NOTE | 2022-01-27 19:05 | NUR ---
REPORT RECEIVED FROM Alanna RAIN RN
--- NOTE | 2022-01-27 19:59 | NUR ---
PATIENT ASSEMENT COMPLETED AT THIS TIME. PATIENT ASSITED TO BSC WITH STANDBY ASSITANCE X1. PATIENT DENIES ANY CURRENT PAIN/ NEEDS. CALL LIGHT AND BEDSIDE TABLE WITHIN REACH.
[2022-01-28] VITALS (7 sets, daily range): BP systolic 118–137; BP diastolic 42–60
--- NOTE | 2022-01-28 | NUR ---
PATIENT RESTING COMOFROTABLY. NO APPARENT DISTRESS NOTED. CALL LIGHT AND BEDSIDE TABLE WITHIN REACH.
--- NOTE | 2022-01-28 04:00 | NUR ---
PATIENT RESTING COOFRTABLY. DENIES ANY CURRENT NEEDS AT THIS TIME. CALL LIGHT AND BEDSIDE TABLE WTIHIN REACH.
[2022-01-28 05:16] LABS: HEMATOCRIT 34.4 % (37.0-47.0); HEMOGLOBIN 11.2 g/dl (12.0-16.0); MEAN CELL VOLUME 87.5 fL CALC (80.0-100.0); MEAN CORPUSCULAR HGB 28.5 pG CALC (26.0-32.0); MEAN CORPUSCULAR HGB CONC 32.6 g/dL CAL (32.0-36.0); RED BLOOD COUNT 3.93 mill/uL (4.20-5.60); RED CELL DISTRI WIDTH 14.6 % (11.5-15.5)
[2022-01-28 05:34] LABS: ALBUMIN 3.5 g/dL (3.2-5.0); ALKALINE PHOSPHATASE 119 u/l (38-126); ANION GAP 11 (6-22 (CALC)); BILIRUBIN, TOTAL 0.2 mg/dL (0.0-1.4); BUN 30 mg/dL (8-23); BUN/CREATININE RATIO 34 (12-20 (CALC)); CARBON DIOXIDE 24 mmol/l (22-30); CHLORIDE 110 mmol/l (95-108); CREATININE 0.9 mg/dL (0.5-1.0); GFR FOR AFR.AMER. > 60 ML/MIN (>=60 (CALC)); GFR OTHER RACES 59 ML/MIN (>=60 (CALC)); POTASSIUM 3.9 mmol/l (3.5-5.1); SGOT/AST 25 u/l (9-36); SODIUM 141 mmol/l (137-146); TOTAL PROTEIN 6.9 g/dL (6.3-8.2)
--- NOTE | 2022-01-28 07:30 | NUR ---
REPORT RECIEVED. PT ASSISTED TO SHOWER BY AID. PT AMBULATES WITH STEADY GAIT, DENIES OF ANY DIZZINESS.
--- NOTE | 2022-01-28 08:40 | NUR ---
PT RESTING IN SEMI FOLWERS POSITION.PT A/OX3. RESPIRATIONS EVEN AND UNLABORED ON ROOM AIR. LUNG SOUNDS CLEAR. HEART RHYTHM NORMAL WITH TELE IN PLACE. BOWELS ACTIVE. #22G RW PATENT. SKIN INTACT. ORTHOSTATIC COMPLETED, PT TOLERATED WELL.PT DENIES OF ANY PAINS OR DISCOMFORTS AT THIS TIME.PT ORIENTATED TO ROOM. BEAR HUGGER NOTED DUE TO PT C/O OF BEING COLD.ALL SAFTEY PRECAUTIONS ARE IN PLACE WITH CALL LIGHT IN REACH.
--- NOTE | 2022-01-28 10:15 | NUR ---
O2 SAT ON 3L IS 93%
[2022-01-28] MEDS ORDERED: LOSARTAN POTASS50 MG PO (11:04)
[2022-01-28] MEDS ORDERED: ERTAPENEM1 GM IV (11:06)
--- NOTE | 2022-01-28 12:33 | NUR ---
PT EDUCATED ON DC INSTRUCTIONS AND NEW MEDICAITONS. PT VERBLAIZED UNDERSTANDING. IV REMOVED WITH CATH INTACT. TELE REMOVED, ER INFORMED. TRANSPORTATION CALLED
--- NOTE | 2022-01-28 14:11 | NUR ---
Discharge instructions given. Patient verbalizes understanding of same. Discharged in stable condition via Wheelchair to Home with staff. All belongings sent with pt.
== END 2022-01-28 14:21 | disposition home health service (06) ==
LOC: ED 10:16 → ED-I 13:22 → ED 14:11 → MS2 14:12
PROVIDERS: Family Medicine; Nurse Practitioner Family; ADMIT Internal Medicine; ATTEND Internal Medicine
DX: I95.1 Orthostatic hypotension (principal); I11.0 Hypertensive heart disease with heart failure; I50.9 Heart failure, unspecified; N39.0 Urinary tract infection, site not specified; I44.7 Left bundle-branch block, unspecified; K21.9 Gastro-esophageal reflux disease without esophagitis; B96.20 Unspecified Escherichia coli [E. coli] as the cause of diseases classified elsewhere; Z16.12 Extended spectrum beta lactamase (ESBL) resistance; Z87.440 Personal history of urinary (tract) infections; Z94.7 Corneal transplant status
CPT/HCPCS: J1335

== ENCOUNTER 2022-04-10 09:17 | Observation (INO) | payer MEDICARE, OTHER ==
[2022-04-10] VITALS (21 sets, daily range): BP systolic 109–153; BP diastolic 50–67
[~2022-04-10] VITALS: Ht 167.6 cm; Wt 68.0 kg
[~2022-04-10 09:17] MED LIST changes: +AMLODIPINE BESY10 MG PO; +ATORVASTATIN CA80 MG PO; +ERTAPENEM1 GM IV; +ISOSORB MONO30 MG PO
[2022-04-10 09:59] LABS: BASO% 0.7 % (0-3); EOS% 4.7 % (0-8); HEMATOCRIT 36.1 % (37.0-47.0); HEMOGLOBIN 11.5 g/dl (12.0-16.0); IMMATURE GRANULOCYTES 0.1 % (0.0-5.0); LYMPH% 20.2 % (15-41); MEAN CELL VOLUME 85.1 fL CALC (80.0-100.0); MEAN CORPUSCULAR HGB 27.1 pG CALC (26.0-32.0); MEAN CORPUSCULAR HGB CONC 31.9 g/dL CAL (32.0-36.0); MONO% 8.7 % (2-13); NEUT# 6.13 thou/uL (2.00-7.15); NEUT% 65.6 % (42-76); RED BLOOD COUNT 4.24 mill/uL (4.20-5.60); RED CELL DISTRI WIDTH 15.2 % (11.5-15.5)
[2022-04-10 10:23] LABS: ALBUMIN 3.9 g/dL (3.2-5.0); ALKALINE PHOSPHATASE 109 u/l (38-126); ANION GAP 11 (6-22 (CALC)); BUN 18 mg/dL (8-23); BUN/CREATININE RATIO 18 (12-20 (CALC)); CARBON DIOXIDE 28 mmol/l (22-30); CHLORIDE 106 mmol/l (95-108); GFR FOR AFR.AMER. > 60 ML/MIN (>=60 (CALC)); GFR OTHER RACES 53 ML/MIN (>=60 (CALC)); LIPASE 54 u/l (23-300); POTASSIUM 3.8 mmol/l (3.5-5.1); SGOT/AST 27 u/l (9-36); SODIUM 141 mmol/l (137-146); TOTAL PROTEIN 7.3 g/dL (6.3-8.2)
[2022-04-10 10:29] LABS: BILIRUBIN, TOTAL 0.3 mg/dL (0.02-1.3)
[2022-04-10 10:55] LABS: URINE BILIRUBIN - DIPSTICK NEGATIVE (NEGATIVE); URINE BLOOD DIPSTICK NEGATIVE (NEGATIVE); URINE GLUCOSE - DIPSTICK NEGATIVE (NEGATIVE); URINE KETONE NEGATIVE (NEGATIVE); URINE LEUK ESTERASE NEGATIVE (NEGATIVE); URINE PROTEIN - DIPSTICK NEGATIVE (NEG-TRACE); URINE UROBILINOGEN - DIPSTICK 0.2 E.U./dL (0.2)
[2022-04-10 10:56] LABS: URINE COLOR STRAW; URINE NITRITE - DIPSTICK NEGATIVE (Negative)
[2022-04-10] MEDS ORDERED: TOPROL XL50 MG PO (12:54)
[2022-04-10] MEDS ORDERED: ESOMEPRAZOLE MA40 MG PO (15:17)
[2022-04-10] MEDS ORDERED: AMLODIPINE BESY10 MG PO (15:19)
[2022-04-11] VITALS (8 sets, daily range): BP systolic 95–135; BP diastolic 43–58
[2022-04-11 05:53] LABS: CHOLESTEROL HDL RATIO 2.8 (<4.4 (CALC)); MAGNESIUM 1.6 mg/dL (1.6-2.3)
[2022-04-12] VITALS (7 sets, daily range): BP systolic 99–148; BP diastolic 49–67
[2022-04-12 05:54] LABS: BASO% 0.7 % (0-3); EOS% 5.2 % (0-8); HEMATOCRIT 31.9 % (37.0-47.0); HEMOGLOBIN 10.5 g/dl (12.0-16.0); IMMATURE GRANULOCYTES 0.5 % (0.0-5.0); LYMPH% 24.7 % (15-41); MEAN CELL VOLUME 84.2 fL CALC (80.0-100.0); MEAN CORPUSCULAR HGB 27.7 pG CALC (26.0-32.0); MEAN CORPUSCULAR HGB CONC 32.9 g/dL CAL (32.0-36.0); NEUT# 6.27 thou/uL (2.00-7.15); NEUT% 58.9 % (42-76); RED BLOOD COUNT 3.79 mill/uL (4.20-5.60); RED CELL DISTRI WIDTH 15.2 % (11.5-15.5)
[2022-04-12 06:04] LABS: ANION GAP 8 (6-22 (CALC)); BUN 28 mg/dL (8-23); BUN/CREATININE RATIO 30 (12-20 (CALC)); CARBON DIOXIDE 27 mmol/l (22-30); CHLORIDE 108 mmol/l (95-108); CREATININE 0.9 mg/dL (0.5-1.0); GFR FOR AFR.AMER. > 60 ML/MIN (>=60 (CALC)); GFR OTHER RACES 59 ML/MIN (>=60 (CALC)); POTASSIUM 3.7 mmol/l (3.5-5.1); SODIUM 139 mmol/l (137-146)
[2022-04-13 00:09] VITALS: BP 134/52
[2022-04-13 04:17] VITALS: BP 147/63
[2022-04-13 06:28] VITALS: BP 158/70
[2022-04-13 10:20] VITALS: BP 114/60
[2022-04-13 14:30] VITALS: BP 116/59
[2022-04-13 14:51] VITALS: BP 116/59
== END 2022-04-13 16:06 | disposition home health service (06) ==
LOC: ED 09:17 → ED-I 11:40 → ED 11:59 → MS2 12:00
PROVIDERS: Emergency Medicine; Internal Medicine; ADMIT Internal Medicine; ATTEND Internal Medicine
DX: R07.9 Chest pain, unspecified (principal); R53.1 Weakness; I11.0 Hypertensive heart disease with heart failure; I50.9 Heart failure, unspecified; K21.9 Gastro-esophageal reflux disease without esophagitis; I25.10 Atherosclerotic heart disease of native coronary artery without angina pectoris; Z94.7 Corneal transplant status
CPT/HCPCS: J1650

== ENCOUNTER 2022-04-15 18:33 | Emergency (ER) | payer MEDICARE, OTHER ==
[2022-04-15] VITALS (19 sets, daily range): BP systolic 125–150; BP diastolic 54–71
[~2022-04-15] VITALS: Ht 167.6 cm; Wt 64.0 kg
[~2022-04-15 18:33] MED LIST changes: +ESOMEPRAZOLE MA40 MG PO; +TOPROL XL50 MG PO
[2022-04-15 19:47] LABS: BASO% 0.2 % (0-3); EOS% 2.8 % (0-8); HEMATOCRIT 37.5 % (37.0-47.0); HEMOGLOBIN 11.7 g/dl (12.0-16.0); IMMATURE GRANULOCYTES 0.2 % (0.0-5.0); LYMPH% 5.4 % (15-41); MEAN CELL VOLUME 84.5 fL CALC (80.0-100.0); MEAN CORPUSCULAR HGB 26.4 pG CALC (26.0-32.0); MEAN CORPUSCULAR HGB CONC 31.2 g/dL CAL (32.0-36.0); MONO% 3.9 % (2-13); NEUT# 12.23 thou/uL (2.00-7.15); NEUT% 87.5 % (42-76); RED BLOOD COUNT 4.44 mill/uL (4.20-5.60); RED CELL DISTRI WIDTH 15.2 % (11.5-15.5)
[2022-04-15 20:02] LABS: ALKALINE PHOSPHATASE 123 u/l (38-126); ANION GAP 9 (6-22 (CALC)); BILIRUBIN, TOTAL 0.4 mg/dL (0.02-1.3); BUN 20 mg/dL (8-23); BUN/CREATININE RATIO 24 (12-20 (CALC)); CARBON DIOXIDE 26 mmol/l (22-30); CHLORIDE 107 mmol/l (95-108); CREATININE 0.8 mg/dL (0.5-1.0); GFR FOR AFR.AMER. > 60 ML/MIN (>=60 (CALC)); GFR OTHER RACES > 60 ML/MIN (>=60 (CALC)); LIPASE 56 u/l (23-300); POTASSIUM 3.7 mmol/l (3.5-5.1); SGOT/AST 42 u/l (9-36); SODIUM 139 mmol/l (137-146); TOTAL PROTEIN 7.6 g/dL (6.3-8.2)
[2022-04-15 23:12] LABS: URINE BILIRUBIN - DIPSTICK NEGATIVE (NEGATIVE); URINE BLOOD DIPSTICK NEGATIVE (NEGATIVE); URINE COLOR YELLOW; URINE GLUCOSE - DIPSTICK NEGATIVE (NEGATIVE); URINE KETONE NEGATIVE (NEGATIVE); URINE LEUK ESTERASE NEGATIVE (NEGATIVE); URINE PH 6.5 (4.5-8.0); URINE PROTEIN - DIPSTICK NEGATIVE (NEG-TRACE); URINE UROBILINOGEN - DIPSTICK 0.2 E.U./dL (0.2)
[2022-04-15 23:18] LABS: URINE NITRITE - DIPSTICK NEGATIVE (Negative)
[2022-04-15] MEDS ORDERED: PROTONIX40 M2 PO (23:33)
[2022-04-16] VITALS: BP 137/69
[2022-04-16 00:16] VITALS: BP 122/53
== END 2022-04-16 00:15 | disposition home or self-care (01) ==
LOC: ED 18:33
PROVIDERS: Nurse Practitioner
DX: K21.9 Gastro-esophageal reflux disease without esophagitis (principal); K44.9 Diaphragmatic hernia without obstruction or gangrene; I11.0 Hypertensive heart disease with heart failure; I50.9 Heart failure, unspecified; R09.02 Hypoxemia; R07.9 Chest pain, unspecified
CPT/HCPCS: Q9967

== ENCOUNTER 2022-04-18 11:17 | Emergency (ER) | payer MEDICARE, OTHER ==
[~2022-04-18] VITALS: Ht 167.6 cm; Wt 62.5 kg
[~2022-04-18 11:17] MED LIST changes: +PROTONIX40 M2 PO
[2022-04-18 11:31] VITALS: BP 152/60
[2022-04-18] MEDS ORDERED: TRAMADOL HYDROC50 M1 PO (11:44)
[2022-04-18 11:53] VITALS: BP 152/60
== END 2022-04-18 12:08 | disposition home or self-care (01) ==
LOC: ED 11:17
DX: K44.9 Diaphragmatic hernia without obstruction or gangrene (principal); K21.9 Gastro-esophageal reflux disease without esophagitis; I11.0 Hypertensive heart disease with heart failure; I50.9 Heart failure, unspecified; I44.7 Left bundle-branch block, unspecified

== ENCOUNTER 2022-09-20 16:32 | Emergency (ER) | payer MEDICARE, OTHER ==
[~2022-09-20] VITALS: Ht 162.6 cm; Wt 62.0 kg
[~2022-09-20 16:32] MED LIST changes: +LOSARTAN; +TRAMADOL HCL50 MG PO; +TRAMADOL HYDROC50 M1 PO
[2022-09-20 16:58] VITALS: BP 140/67
[2022-09-20 17:00] VITALS: BP 153/68
[2022-09-20 17:22] LABS: URINE BILIRUBIN - DIPSTICK NEGATIVE (NEGATIVE); URINE BLOOD DIPSTICK NEGATIVE (NEGATIVE); URINE COLOR YELLOW; URINE GLUCOSE - DIPSTICK NEGATIVE (NEGATIVE); URINE KETONE NEGATIVE (NEGATIVE); URINE PROTEIN - DIPSTICK NEGATIVE (NEG-TRACE); URINE SPECIFIC GRAVITY 1.015; URINE UROBILINOGEN - DIPSTICK 0.2 E.U./dL (0.2)
[2022-09-20 17:23] LABS: URINE LEUK ESTERASE SMALL (NEGATIVE); URINE NITRITE - DIPSTICK POSITIVE (Negative)
[2022-09-20 17:30] VITALS: BP 140/55
[2022-09-20 17:33] LABS: URINE BACTERIA MODERATE hpf; URINE RBC 0-2 RBC/hpf (0-5); URINE SQUAMOUS EPITHELIAL CELL FEW EPI/hpf (0-FEW)
[2022-09-20 18:00] VITALS: BP 137/57
[2022-09-20 18:30] VITALS: BP 128/52
[2022-09-20] MEDS ORDERED: DOXYCYCLINE100 MG PO (18:46)
[2022-09-20 19:04] VITALS: BP 160/73
== END 2022-09-20 19:09 | disposition home or self-care (01) ==
LOC: ED 16:32
PROVIDERS: Family Medicine
DX: N39.0 Urinary tract infection, site not specified (principal); I11.0 Hypertensive heart disease with heart failure; I50.9 Heart failure, unspecified; K21.9 Gastro-esophageal reflux disease without esophagitis

== ENCOUNTER 2022-09-30 09:46 | Observation (INO) | payer MEDICARE, OTHER ==
[~2022-09-30] VITALS: Ht 162.6 cm; Wt 61.2 kg
[2022-09-30] VITALS (22 sets, daily range): BP systolic 115–187; BP diastolic 43–88
[~2022-09-30 09:46] MED LIST changes: +DOXYCYCLINE100 MG PO
--- NOTE | 2022-09-30 09:52 | NUR ---
PROVIDER AT BEDSIDE. PATIENT ADVISED OF PLAN OF CARE. PATIENT VERBALIZED UNDERSTANDING OF PLAN OF CARE.
--- NOTE | 2022-09-30 10:01 | NUR ---
PT ARRIVED VIA EMS TO ROOM 13. PER EMS PT HAD A SYNCOPAL EPISODE IN HER CHAIR
[2022-09-30 10:06] LABS: BASO% 0.6 % (0-3); HEMATOCRIT 37.2 % (37.0-47.0); HEMOGLOBIN 11.8 g/dl (12.0-16.0); IMMATURE GRANULOCYTES 0.1 % (0.0-5.0); LYMPH% 24.7 % (15-41); MEAN CELL VOLUME 86.5 fL CALC (80.0-100.0); MEAN CORPUSCULAR HGB 27.4 pG CALC (26.0-32.0); MEAN CORPUSCULAR HGB CONC 31.7 g/dL CAL (32.0-36.0); MONO% 8.2 % (2-13); NEUT# 7.24 thou/uL (2.00-7.15); NEUT% 64.4 % (42-76); RED BLOOD COUNT 4.3 mill/uL (4.20-5.60); RED CELL DISTRI WIDTH 14.8 % (11.5-15.5)
[2022-09-30 10:17] LABS: ALKALINE PHOSPHATASE 132 u/l (38-126); ANION GAP 13 (6-22 (CALC)); BUN 29 mg/dL (8-23); BUN/CREATININE RATIO 26 (12-20 (CALC)); CARBON DIOXIDE 23 mmol/l (22-30); CHLORIDE 110 mmol/l (95-108); CREATININE 1.1 mg/dL (0.5-1.0); GFR FOR AFR.AMER. 57 ML/MIN (>=60 (CALC)); GFR OTHER RACES 47 ML/MIN (>=60 (CALC)); POTASSIUM 3.9 mmol/l (3.5-5.1); SGOT/AST 32 u/l (9-36); SODIUM 142 mmol/l (137-146); TOTAL PROTEIN 7.7 g/dL (6.3-8.2)
[2022-09-30 10:18] LABS: BILIRUBIN, TOTAL 0.7 mg/dL (0.02-1.3)
--- NOTE | 2022-09-30 10:34 | NUR ---
PATIENT RETURNED FROM CT AT THIS TIME. PATIENT IS COMFORTABLE IN BED. PT VERBALIZED NO NEEDS AT THIS TIME.
[2022-09-30 11:29] LABS: URINE COLOR YELLOW; URINE GLUCOSE - DIPSTICK NEGATIVE (NEGATIVE)
[2022-09-30 11:30] LABS: URINE BILIRUBIN - DIPSTICK NEGATIVE (NEGATIVE); URINE BLOOD DIPSTICK NEGATIVE (NEGATIVE); URINE KETONE Negative (NEGATIVE); URINE LEUK ESTERASE TRACE (NEGATIVE); URINE NITRITE - DIPSTICK NEGATIVE (Negative); URINE PH 5.5 (4.5-8.0); URINE PROTEIN - DIPSTICK NEGATIVE (NEG-TRACE); URINE SPECIFIC GRAVITY 1.015; URINE UROBILINOGEN - DIPSTICK 0.2 E.U./dL (0.2)
--- NOTE | 2022-09-30 12:46 | NUR ---
PATIENT RESTING. NO DISTRESS. ADMISSION TO THE HOSPITAL DISCUSSED. PATIENT ACCEPTING.
--- NOTE | 2022-09-30 14:19 | NUR ---
VERBAL REPORT GIVEN TO ABDULKADIR TAMAYO ON MED-SURG. PATIENT PREPARED FOR TRANSFER TO MED-SURG.
--- NOTE | 2022-09-30 15:00 | NUR ---
PT TRANSFERRED TO MED SURG FROM ER VIA W/C. PT IS ALERT AND ORIENTED X3, PT HAS NO C/O PAIN AT THIS TIME. TELE # 7 ON WITH ALL LEADS ATTACHED. PT HAS IV # 20 TO LAC, CLEAN AND INTACT, SL. PT LUNGS CLEAR/ DIMINISHED. PT ABD SOFT BS ACTIVE. PT SKIN IS CLEAN AND INTACT. PT AMBULATES WITH ASSIST TO BATHROOM FOR TOILETING NEEDS. PT HAS BED ALARM ON AND ALL SAFETY MEASURES IN PLACE AT THIS TIME. PT HAS CALL LIGHT WIHTIN REACH AND IS AWARE TO CALL NURSE PRIOR TO GETTING OUT OF BED.
--- NOTE | 2022-09-30 16:00 | NUR ---
PT IN BED WITH HOB UP, WATCHING TV. PT HAS NO C/O PAIN AT THIS TIME. PT HAS NO CHANGE IN STATUS. CALL LIGHT WIHTIN REACH AND ALL SAFETY MEASURES IN PLACE AT THIS TIME.
[2022-10-01] VITALS (7 sets, daily range): BP systolic 105–174; BP diastolic 47–69
--- NOTE | 2022-10-01 07:19 | NUR ---
PT RESTING IN SEMI FOWLERS POSITION. A/O PT RESPIRAITONS ON ROOM AIR. IV SITE NOTED. HEART MONITOR NOTED. PT DENIES ADDITIONAL NEEDS AT THE TIME ALL SAFETY PRECAUTIONS IN PLACE WITH CALL LIGHT IN REACH.
--- NOTE | 2022-10-01 11:57 | NUR ---
PT RESTING IN SEMI FOWLERS POSITION. PT DENIES ADDITIONAL NEEDS AT THE TIME PT CALL LIGHT IN REACH ALL SAFETY PRECAUTIONS IN PLACE.
--- NOTE | 2022-10-01 16:00 | NUR ---
PT C/O OF VIBRATION IN CHEST EARLIER MD INFORMED. TROP ORDERS NEG. EKG ORDERED NEG. PT RECIEVED ABX TODAY PT DENIES ADDITIONAL NEEDS AT THE TIME ALL SAFETY PRECAUTIONS IN PLACE
--- NOTE | 2022-10-01 20:13 | NUR ---
BEDSIDE REPORT RECEIVED FROM OFF GOING NURSE. PATIENT AWAKE IN BED. PATIENT ALERT AND ORIENTED AND ABLE TO MAKE NEEDS KNOWN. PATIENT UP TO BATHROOM WITH ASSIST OF WALKER. PATIENT HAS STEADY GAIT. C/O HAVING A HEADACHE. RESPIRATIONS EVEN AND UNLABORED ON ROOM AIR. IV SITE TO LEFT AC SALINE LOCKED. CALL LIGHT WITHIN REACH.
--- NOTE | 2022-10-01 23:19 | NUR ---
PATIENT ASLEEP IN BED BUT EASILY AROUSED. VITAL SIGNS TAKEN. PATIENT ASSISTED TO REPOSITION IN BED. REPIRATIONS EVEN AND UNLABORED ON ROOM AIR. CALL LIGHT WITHIN REACH.
[2022-10-02 01:41] LABS: HEMATOCRIT 31.6 % (37.0-47.0); MEAN CORPUSCULAR HGB 27.9 pG CALC (26.0-32.0); MEAN CORPUSCULAR HGB CONC 31.6 g/dL CAL (32.0-36.0); RED BLOOD COUNT 3.59 mill/uL (4.20-5.60); RED CELL DISTRI WIDTH 14.7 % (11.5-15.5)
[2022-10-02 02:23] LABS: ALKALINE PHOSPHATASE 110 u/l (38-126); ANION GAP 8 (6-22 (CALC)); BUN 30 mg/dL (8-23); BUN/CREATININE RATIO 29 (12-20 (CALC)); CARBON DIOXIDE 24 mmol/l (22-30); CHLORIDE 109 mmol/l (95-108); GFR FOR AFR.AMER. > 60 ML/MIN (>=60 (CALC)); GFR OTHER RACES 53 ML/MIN (>=60 (CALC)); MAGNESIUM 1.5 mg/dL (1.6-2.3); POTASSIUM 3.8 mmol/l (3.5-5.1); SGOT/AST 23 u/l (9-36); SODIUM 137 mmol/l (137-146)
[2022-10-02 02:25] LABS: ALBUMIN 2.8 g/dL (3.2-5.0); BILIRUBIN, TOTAL 0.3 mg/dL (0.02-1.3); TOTAL PROTEIN 5.7 g/dL (6.3-8.2)
--- NOTE | 2022-10-02 02:49 | NUR ---
PATIENT ASLEEP IN BED. RESPIRATIONS EVEN AND UNLABORED ON ROOM AIR. BED IN LOWEST POSITION. CALL LIGHT WITHIN REACH. NO SIGNS OF DISTRESS NOTED.
[2022-10-02 04:23] VITALS: BP 151/61
[2022-10-02 07:39] VITALS: BP 126/59
--- NOTE | 2022-10-02 08:00 | NUR ---
GOT REPORT FROM SERVICE STATION MANAGER NURSE. PATIENT ASSESSED. PATIENT IS AOX4. PATIENT IS SITTING UP IN BED, STATES THAT SHE IS FEELING GOOD. PATIENT HAS BREAKFAST. PATIENT VITALS ARE STABLE. PER MD PATIENT IS TO GET PICC LINE FOR OUTPATIENT IV ANTIBIOTICS. PATIENT AGREED AND SIGNED CONSENT. I SPOKE TO PATIENT'S DAUGHTER TO INFORM HER OF AN UPDATE PER PATIENT REQUEST. NO FURTHER QUESTIONS AT THIS TIME. BED ALARM ON, CALL LIGHT AND BEDSIDE TABLE WITH IN REACH. ADVISED TO CALL IF NEEDING ANYTHING. PATIENT VERBALIZED UNADERSTANDING AND AGREEMENT.
[2022-10-02] MEDS ORDERED: ERTAPENEM1 G1 IV (08:15)
--- NOTE | 2022-10-02 11:40 | NUR ---
Discharge instructions given. Patient verbalizes understanding of same. Discharged in stable condition via Wheelchair to Home with family. All belongings sent with pt.
== END 2022-10-02 11:40 | disposition home health service (06) ==
LOC: ED 09:46 → ED-I 12:00 → ED 12:15 → MS2 12:16
PROVIDERS: Family Medicine; ADMIT Internal Medicine; ATTEND Internal Medicine
PROC: 05HB33Z Insertion of Infusion Device into Right Basilic Vein, Percutaneous Approach (ICD-10-PCS; principal; 2022-10-02)
DX: R55 Syncope and collapse (principal); N39.0 Urinary tract infection, site not specified; R07.89 Other chest pain; I11.0 Hypertensive heart disease with heart failure; I50.9 Heart failure, unspecified; K21.9 Gastro-esophageal reflux disease without esophagitis; K44.9 Diaphragmatic hernia without obstruction or gangrene; I44.7 Left bundle-branch block, unspecified; B96.89 Other specified bacterial agents as the cause of diseases classified elsewhere; Z16.12 Extended spectrum beta lactamase (ESBL) resistance; Z87.440 Personal history of urinary (tract) infections
CPT/HCPCS: J1335; J1650; J3475

== ENCOUNTER 2022-11-08 19:44 | Observation (INO) | payer MEDICARE, OTHER ==
[~2022-11-08] VITALS: Ht 167.6 cm; Wt 60.4 kg
[2022-11-08] VITALS (16 sets, daily range): BP systolic 118–159; BP diastolic 48–75
[~2022-11-08 19:44] MED LIST changes: +ERTAPENEM1 G1 IV
--- NOTE | 2022-11-08 19:46 | NUR ---
PT TO ED RM 10 VIA EMS; PT AOX3 AND STATES MILD CHEST DISCOMFORT; EKG OBTAINS AND LABS PULLED; VSS AT BEDSIDE PT NAD AT THIS TIME; BLANKETS GIVEN TO PT AND CALL LIGHT WITHIN REACH
[2022-11-08 20:21] LABS: BASO% 0.8 % (0-3); EOS% 3.2 % (0-8); HEMATOCRIT 33.2 % (37.0-47.0); HEMOGLOBIN 10.6 g/dl (12.0-16.0); IMMATURE GRANULOCYTES 0.1 % (0.0-5.0); LYMPH% 26.6 % (15-41); MEAN CELL VOLUME 86.7 fL CALC (80.0-100.0); MEAN CORPUSCULAR HGB 27.7 pG CALC (26.0-32.0); MEAN CORPUSCULAR HGB CONC 31.9 g/dL CAL (32.0-36.0); MONO% 10.3 % (2-13); NEUT# 6.05 thou/uL (2.00-7.15); RED BLOOD COUNT 3.83 mill/uL (4.20-5.60); RED CELL DISTRI WIDTH 15.5 % (11.5-15.5)
[2022-11-08 20:32] LABS: ALKALINE PHOSPHATASE 112 u/l (38-126); AMYLASE 51 u/l (30-110); ANION GAP 11 (6-22 (CALC)); BILIRUBIN, TOTAL 0.3 mg/dL (0.02-1.3); BUN 25 mg/dL (8-23); BUN/CREATININE RATIO 29 (12-20 (CALC)); CARBON DIOXIDE 25 mmol/l (22-30); CHLORIDE 107 mmol/l (95-108); CREATININE 0.9 mg/dL (0.5-1.0); GFR FOR AFR.AMER. > 60 ML/MIN (>=60 (CALC)); GFR OTHER RACES 59 ML/MIN (>=60 (CALC)); LIPASE 82 u/l (23-300); POTASSIUM 3.5 mmol/l (3.5-5.1); SGOT/AST 34 u/l (9-36); SODIUM 140 mmol/l (137-146)
[2022-11-08 20:39] LABS: ALBUMIN 3.7 g/dL (3.2-5.0); TOTAL PROTEIN 7.1 g/dL (6.3-8.2)
--- NOTE | 2022-11-08 20:45 | NUR ---
PT STATES NO NEEDS AT THIS TIME; VSS AT BEDSIDE
--- NOTE | 2022-11-08 22:26 | NUR ---
PT PENDING ADMISSION; VSS AT BEDSIDE AND STATES NO NEEDS AT THIS TIME; CALL LIGHT REMAINS IN REACH
[2022-11-09] VITALS (14 sets, daily range): BP systolic 105–142; BP diastolic 36–83
--- NOTE | 2022-11-09 00:41 | NUR ---
PT TRANS TO UNIT ON STRETCHER BY LEILANI TAMAYO (CLEARANCE CENTER MANAGER) ON MONITOR WITH NAD AND VSS. PT IS A VERY SWEET AND PLEASENT 86 YO FEMALE WHO IS A&OX3, AMBULATES WITH WALKER, NSR WITH LBBB ON TELE AND ON RA WITH CLEAR LUNG SOUNDS UPON AUSCULTATION. ONCE PT GOT TO ICU 1 SHE AMBULATED WITH WALKER TO RR WITH SBAX1, PT THEN SETTLED INTO BED WHERE SHE RECEIVED AND ATE A TV DINNER WITH MILK. SAFETY WAS REVIEWED WITH PT AND SHE AGREED. PT HAS NO MED ORDERS AT THIS TIME. BED IN THE LOWEST POSITION WITH BEDSIDE TABLE AND CALL LIGHT WITHIN REACH. WILL CONTINUE POC.
[2022-11-09 07:28] LABS: BASO% 0.9 % (0-3); HEMATOCRIT 31.9 % (37.0-47.0); HEMOGLOBIN 10.1 g/dl (12.0-16.0); IMMATURE GRANULOCYTES 0.6 % (0.0-5.0); MEAN CELL VOLUME 87.6 fL CALC (80.0-100.0); MEAN CORPUSCULAR HGB 27.7 pG CALC (26.0-32.0); MEAN CORPUSCULAR HGB CONC 31.7 g/dL CAL (32.0-36.0); MONO% 10.1 % (2-13); NEUT# 5.02 thou/uL (2.00-7.15); NEUT% 61.4 % (42-76); RED BLOOD COUNT 3.64 mill/uL (4.20-5.60); RED CELL DISTRI WIDTH 15.5 % (11.5-15.5)
[2022-11-09 07:56] LABS: ALBUMIN 3.1 g/dL (3.2-5.0); ALKALINE PHOSPHATASE 109 u/l (38-126); ANION GAP 6 (6-22 (CALC)); BILIRUBIN, TOTAL 0.4 mg/dL (0.02-1.3); BUN 21 mg/dL (8-23); BUN/CREATININE RATIO 24 (12-20 (CALC)); CARBON DIOXIDE 27 mmol/l (22-30); CHLORIDE 109 mmol/l (95-108); CREATININE 0.9 mg/dL (0.5-1.0); GFR FOR AFR.AMER. > 60 ML/MIN (>=60 (CALC)); GFR OTHER RACES 59 ML/MIN (>=60 (CALC)); POTASSIUM 3.7 mmol/l (3.5-5.1); SGOT/AST 28 u/l (9-36); SODIUM 139 mmol/l (137-146); TOTAL PROTEIN 6.3 g/dL (6.3-8.2)
--- NOTE | 2022-11-09 08:00 | NUR ---
REPORT RECIEVED FROM NIGHT RN. PT ADMITTED INITIALLY FOR CHEST PAIN. PT DENIES ANY CHEST PAIN AT THIS TIME. PT IS A/O. LUNGS CLEAR; PT IS ON RA. NO COUGH NOTED. HEART RHYTHM REGULAR; PT IS NSR WITH LBBB ON MONITOR. BOWEL SOUNDS ACTIVE. ABDOMEN SOFT/ NON-TENDER. PULSES STRONG ALL EXTREMETIES. SKIN W/D. PT HAS SMALL SKIN TEARS AND BRUISES ON ARMS WHICH WERE PRESENT ON ADMISSION. +1 PITTING EDEMA ON BILATERAL LOWER LEGS. PT AFEBRILE. PT DENIES ANY NEEDS OR CONCERNS AT THIS TIME AND STATED THAT IF ALL HER TESTS WERE GOOD SHE IS READY TO GO HOME. PT SITTING UP IN BED EATING BREAKFAST. IV 20G LAC FLUSHED EASILY. CALL LIGHT IN REACH. VSS.
--- NOTE | 2022-11-09 10:28 | NUR ---
DR. GARCÍA AT BEDSIDE TO SPEAK WITH PT.
--- NOTE | 2022-11-09 10:52 | NUR ---
PT ASSISTED TO BATHROOM TO VOID. PT AMBULATED WITH WALKER.
--- NOTE | 2022-11-09 11:18 | NUR ---
VERBAL ORDER FROM DR. GARCÍA TO PLACE CARDIOLOGY CONSULT.
--- NOTE | 2022-11-09 11:20 | NUR ---
PT GIVEN LUNCH TRAY AND SITTING UP IN BED TO EAT. CALL LIGHT IN REACH. VSS. PT DENIED ANY NEEDS AT THIS TIME.
[2022-11-09 11:25] LABS: URINE BILIRUBIN - DIPSTICK Negative (NEGATIVE); URINE BLOOD DIPSTICK Trace-intact (NEGATIVE); URINE GLUCOSE - DIPSTICK Negative (NEGATIVE); URINE KETONE Negative (NEGATIVE); URINE PROTEIN - DIPSTICK Negative (NEG-TRACE); URINE SPECIFIC GRAVITY 1.015; URINE UROBILINOGEN - DIPSTICK 0.2 E.U./dL (0.2)
[2022-11-09 11:28] LABS: URINE COLOR Yellow; URINE LEUK ESTERASE Moderate (NEGATIVE); URINE NITRITE - DIPSTICK Positive (Negative)
--- NOTE | 2022-11-09 11:28 | NUR ---
TELE-CARDIOLOGY CONSULT COMPLETE. ALL PT QUESTIONS ANSWERED. PER DR. ARIAS PT NEEDS ECHO DONE.
[2022-11-09 11:32] LABS: URINE BACTERIA MANY hpf; URINE RBC 0-2 RBC/hpf (0-5); URINE SQUAMOUS EPITHELIAL CELL FEW EPI/hpf (0-FEW)
--- NOTE | 2022-11-09 11:55 | NUR ---
PHONE CALL PLACED TO DR. GARCÍA TO INFORM OF PT'S UA RESULTS AND COMPLETED CARDIOLOGY CONSULT.
--- NOTE | 2022-11-09 12:58 | NUR ---
PT LYING IN BED. VISITOR AT BEDSIDE. CALL LIGHT IN REACH. VSS.
--- NOTE | 2022-11-09 13:28 | NUR ---
PT ASSISTED TO BATHROOM TO VOID. PT AMBULATED WITH WALKER.
--- NOTE | 2022-11-09 15:45 | NUR ---
PT ASSISTED TO BATHROOM TO VOID. PT AMBULATED WITH WALKER. NO DIZZINESS UPON STANDING. PT BACK TO BED. CALL LIGHT IN REACH. VSS.
--- NOTE | 2022-11-09 17:54 | NUR ---
PT ATE DINNER IN BED AND THEN ASSISTED TO RESTROOM USING WALKER. PT DENIED ANY NEEDS. CALL LIGHT IN REACH. VSS. PT WATCHING TV.
[2022-11-10] VITALS (10 sets, daily range): BP systolic 104–146; BP diastolic 52–74
--- NOTE | 2022-11-10 00:09 | NUR ---
PT APPEARS CMFORTABLE RESTING IN BED WITH EYES CLOSED WITH NAD AND VSS. BED IN THE LOWEST POSITION WITH BEDSIDE TABLE AND CALL LIGHT WITHIN REACH. WILL CONTINUE POC.
--- NOTE | 2022-11-10 07:15 | NUR ---
PERFROMED BEDSIDE REPORT WITH SKETCH LINER NURSE. PT IS A/OX3, RM AIR, DENIES ANY PAIN AT THIS TIME. PT REQUESTED TO USE RESTROOM. AMBULATED WITH WALKER AND STAND BY ASSIST. VOIDS NO PROBLEM. AMBULATED BACK INTO BED. NO S/S OF DISTRESS. EDUCATED PT ON PLAN OF CARE TODAY. VSS. CALL LIGHT WITHIN REACH AND SAFETY PRECAUTIONS IN PLACE.
[2022-11-10 07:41] LABS: BASO% 0.9 % (0-3); EOS% 3.7 % (0-8); HEMATOCRIT 32.6 % (37.0-47.0); HEMOGLOBIN 10.6 g/dl (12.0-16.0); IMMATURE GRANULOCYTES 0.1 % (0.0-5.0); LYMPH% 26.2 % (15-41); MEAN CELL VOLUME 87.4 fL CALC (80.0-100.0); MEAN CORPUSCULAR HGB 28.4 pG CALC (26.0-32.0); MEAN CORPUSCULAR HGB CONC 32.5 g/dL CAL (32.0-36.0); MONO% 10.7 % (2-13); NEUT# 5.59 thou/uL (2.00-7.15); NEUT% 58.4 % (42-76); RED BLOOD COUNT 3.73 mill/uL (4.20-5.60); RED CELL DISTRI WIDTH 15.5 % (11.5-15.5)
[2022-11-10 07:51] LABS: ALBUMIN 3.2 g/dL (3.2-5.0); BILIRUBIN, TOTAL 0.4 mg/dL (0.02-1.3); CREATININE 1.1 mg/dL (0.5-1.0); MAGNESIUM 1.8 mg/dL (1.6-2.3); TOTAL PROTEIN 6.3 g/dL (6.3-8.2)
--- NOTE | 2022-11-10 10:30 | NUR ---
PT IS SITTING UP IN BED SEMI FOWLERS, ORTHOSTATICS COMPLETED AND INFORMED PHYSCIAN. NO NEW ORDERS AT THIS TIME. PT DENIES ANY PAIN. VSS. NO S/S OF DISTRESS. CALL LIGHT WITHIN REACH AND SAFETY PRECAUTIONS IN PLACE.
--- NOTE | 2022-11-10 12:08 | NUR ---
ASSISTED PT WITH USING RESTROOM. PT NOW SITTING UP IN CHAIR, FINISHED LUNCH AND TOLERATED WELL. NO S/S OF DISTRESS. DENIES ANY PAIN. VSS. CALL LIGHT WITHIN REACH AND SAFETY PRECAUTIONS IN PLACE.
--- NOTE | 2022-11-10 14:15 | NUR ---
ASSISTED WITH GETTING PT BACK INTO BED. SITTING UP FOWLERS, MONITOR IN PLACE. PT DENIES ANY PAIN. VSS. CALL LIGHT WITHIN REACH AND SAFETY PRECAUTIONS IN PLACE.
--- NOTE | 2022-11-10 17:22 | NUR ---
PT IS SITTING UP HIGH FOWLERS IN BED, EATING DINNER. NO S/S OF DISTRESS. VSS. CALL LIGHT WITHIN REACH AND SAFETY PRECAUTIONS IN PLACE.
--- NOTE | 2022-11-10 21:18 | NUR ---
PT TRANSFERRED TO [facility] PER PHYSICIAN ORDER. TRANSFERRED VIA . REPORT GIVEN TO BELKIS CORMIER. PT PLACED ON TELE MONITORING BEFORE LEABING ICU FLOOR.
--- NOTE | 2022-11-10 21:30 | NUR ---
7PATIENT TRANSFERRED FROM ICU VIA WHEELCHAIR WITH ICU STAFF IN ATTENDANCE. PATIENT WAS ABLE TO TRANSFER TO THE BED. PATIENT IS AWAKE ALERT AND ORIENTEDX3. STATES THAT SHEIS FEELING MUCH BETTER THAN WHEN SHE CAME TO THE HOSPITAL. TELE MONITOR IN PLACE. IV SITE TO LAC INTACT AND HEALTHY AT THIS TIME. ORIENTED PATIENT TO ROOM AND SURROUNDINGS. INSTRUCTED ON USE OF NURSE CALL LIGHT SYSTEM AND TV REMOTE. SAFETY PRECAUTIONS REINFORCED. CALL LIGHT IN REACH. WILL CONT TO MONITOR.
--- NOTE | 2022-11-11 00:08 | NUR ---
PATIENT RESTING IN BED WITH HOB ELEVATED. EYES ARE CLOSED AND RESPS ARE EVEN AND UNLABORED. TELE MONITOR IN PLACE. CALL LIGHT IN REACH. WILL CONT TO MONITOR.
[2022-11-11 00:13] VITALS: BP 118/58
[2022-11-11 04:15] VITALS: BP 116/51
--- NOTE | 2022-11-11 04:30 | NUR ---
PATIENT RESTING IN BED AT THIS TIME WITH EYES CLOSED AND RESPS ARE EVEN AND UNLABORED. TELE MONITOR IN PLACE. SALINE LOCK TO LAC INTACT. CALL LIGHT IN REACH. WILL CONT TO MONITOR.
[2022-11-11 06:30] LABS: BASO% 0.9 % (0-3); EOS% 4.1 % (0-8); HEMATOCRIT 32.4 % (37.0-47.0); HEMOGLOBIN 10.4 g/dl (12.0-16.0); IMMATURE GRANULOCYTES 0.2 % (0.0-5.0); LYMPH% 25.4 % (15-41); MEAN CELL VOLUME 88.3 fL CALC (80.0-100.0); MEAN CORPUSCULAR HGB 28.3 pG CALC (26.0-32.0); MEAN CORPUSCULAR HGB CONC 32.1 g/dL CAL (32.0-36.0); MONO% 9.1 % (2-13); NEUT# 6.01 thou/uL (2.00-7.15); NEUT% 60.3 % (42-76); RED BLOOD COUNT 3.67 mill/uL (4.20-5.60); RED CELL DISTRI WIDTH 15.5 % (11.5-15.5)
[2022-11-11 06:47] LABS: ALBUMIN 3.2 g/dL (3.2-5.0); ALKALINE PHOSPHATASE 97 u/l (38-126); ANION GAP 11 (6-22 (CALC)); BILIRUBIN, TOTAL 0.4 mg/dL (0.02-1.3); BUN 29 mg/dL (8-23); BUN/CREATININE RATIO 32 (12-20 (CALC)); CARBON DIOXIDE 23 mmol/l (22-30); CHLORIDE 109 mmol/l (95-108); CREATININE 0.9 mg/dL (0.5-1.0); GFR FOR AFR.AMER. > 60 ML/MIN (>=60 (CALC)); GFR OTHER RACES 59 ML/MIN (>=60 (CALC)); MAGNESIUM 1.7 mg/dL (1.6-2.3); POTASSIUM 4.3 mmol/l (3.5-5.1); SGOT/AST 32 u/l (9-36); SODIUM 138 mmol/l (137-146); TOTAL PROTEIN 6.5 g/dL (6.3-8.2)
[2022-11-11 07:10] VITALS: BP 129/53
--- NOTE | 2022-11-11 07:21 | NUR ---
PT RESTING IN LOW FOWLERS POSITION.A/OX3 HARD OF HEARING. HEART RHYHTM ON TELE.RESPIRAITONS ON ROOM AIR. IV SITE NOTED. PT DENIES ADDITIONAL NEEDS AT THE TIME ALL SAFETY PRECAUTIONS IN PLACE WITH CALL LIGHT IN REACH.
[2022-11-11 11:04] VITALS: BP 113/58
--- NOTE | 2022-11-11 12:02 | NUR ---
PT RESTING IN SEMI FOWLERS POSITION. PT DENIES ADDITIONAL NEEDS AT THE TIME ALL SAFETY PRECAUTIONS IN PLACE.
[2022-11-11] MEDS ORDERED: MACROBID100 M1 PO (12:10)
--- NOTE | 2022-11-11 13:59 | NUR ---
Discharge instructions given. Patient verbalizes understanding of same. Discharged in stable condition via Wheelchair to Home with staff. All belongings sent with pt. IV REMOVED TELE REMOVED.
--- NOTE | 2022-11-12 14:19 | NUR ---
Discharge follow up call completed today. 11/12/22. Daughter states patient is doing well. She began taking prescribed medication without issue.. She has not scheduled a follow up appt with PCP yet but daughter states she will do this this week. Daughter states patient was told to follow up with a GI physician but was not given a referral. Patient has been calling GI docs without success. Suggested to daughter they should follow up with PCP and get a GI referal from PCP. No other needs or concerns voiced at this time.
== END 2022-11-11 13:59 | disposition home or self-care (01) ==
LOC: ED 19:44 → ED-I 21:40 → ED 21:57 → ICU 21:58 → MS2 11-10 21:27
PROVIDERS: Emergency Medicine; Student in an Organized Health Care Education/Training Program; ADMIT Student in an Organized Health Care Education/Training Program; ATTEND Student in an Organized Health Care Education/Training Program
DX: R07.89 Other chest pain (principal); I95.1 Orthostatic hypotension; N39.0 Urinary tract infection, site not specified; B96.20 Unspecified Escherichia coli [E. coli] as the cause of diseases classified elsewhere; Z16.12 Extended spectrum beta lactamase (ESBL) resistance; R42 Dizziness and giddiness; I11.0 Hypertensive heart disease with heart failure; I50.9 Heart failure, unspecified; I48.20 Chronic atrial fibrillation, unspecified; K21.9 Gastro-esophageal reflux disease without esophagitis; I35.0 Nonrheumatic aortic (valve) stenosis; I44.7 Left bundle-branch block, unspecified; E78.5 Hyperlipidemia, unspecified; Z87.440 Personal history of urinary (tract) infections; Z79.82 Long term (current) use of aspirin; Z20.822 Contact with and (suspected) exposure to COVID-19
CPT/HCPCS: J1650

== ENCOUNTER 2023-03-04 09:51 | Observation (INO) | payer MEDICARE, OTHER ==
[2023-03-04] VITALS (9 sets, daily range): BP systolic 119–174; BP diastolic 42–81
[~2023-03-04] VITALS: Ht 167.6 cm; Wt 63.1 kg
[~2023-03-04 09:51] MED LIST changes: +AMOX/K CLAV875 M1 PO; +MACROBID100 M1 PO
[2023-03-04 10:30] LABS: BASO% 0.5 % (0-3); EOS% 2.7 % (0-8); HEMATOCRIT 34.7 % (37.0-47.0); HEMOGLOBIN 10.8 g/dl (12.0-16.0); IMMATURE GRANULOCYTES 0.2 % (0.0-5.0); LYMPH% 22.4 % (15-41); MEAN CELL VOLUME 83.2 fL CALC (80.0-100.0); MEAN CORPUSCULAR HGB 25.9 pG CALC (26.0-32.0); MEAN CORPUSCULAR HGB CONC 31.1 g/dL CAL (32.0-36.0); MONO% 7.5 % (2-13); NEUT# 8.51 thou/uL (2.00-7.15); NEUT% 66.7 % (42-76); RED BLOOD COUNT 4.17 mill/uL (4.20-5.60); RED CELL DISTRI WIDTH 15.7 % (11.5-15.5)
[2023-03-04 10:30] LABS: URINE BILIRUBIN - DIPSTICK Negative (NEGATIVE); URINE BLOOD DIPSTICK Trace-intact (NEGATIVE); URINE COLOR Straw; URINE GLUCOSE - DIPSTICK Negative (NEGATIVE); URINE KETONE Negative (NEGATIVE); URINE LEUK ESTERASE Trace (NEGATIVE); URINE NITRITE - DIPSTICK Negative (Negative); URINE PH 6.5 (4.5-8.0); URINE PROTEIN - DIPSTICK Negative (NEG-TRACE); URINE UROBILINOGEN - DIPSTICK 0.2 E.U./dL (0.2)
[2023-03-04 10:50] LABS: ALBUMIN 4.6 g/dL (3.2-5.0); ALKALINE PHOSPHATASE 141 u/l (38-126); ANION GAP 16 (6-22 (CALC)); BILIRUBIN, TOTAL 0.4 mg/dL (0.02-1.3); BUN 23 mg/dL (8-23); BUN/CREATININE RATIO 24 (12-20 (CALC)); CARBON DIOXIDE 22 mmol/l (22-30); CHLORIDE 105 mmol/l (95-108); GFR FOR AFR.AMER. > 60 ML/MIN (>=60 (CALC)); GFR OTHER RACES 52 ML/MIN (>=60 (CALC)); POTASSIUM 3.7 mmol/l (3.5-5.1); SGOT/AST 40 u/l (9-36); SODIUM 140 mmol/l (137-146); TOTAL PROTEIN 8.8 g/dL (6.3-8.2)
[2023-03-04] MEDS ORDERED: AMLODIPINE BESY10 MG PO (12:45)
[2023-03-05 03:29] VITALS: BP 126/41
[2023-03-05 06:02] LABS: BASO% 1.3 % (0-3); EOS% 3.9 % (0-8); HEMATOCRIT 30.4 % (37.0-47.0); HEMOGLOBIN 9.8 g/dl (12.0-16.0); IMMATURE GRANULOCYTES 0.1 % (0.0-5.0); LYMPH% 28.2 % (15-41); MEAN CELL VOLUME 82.2 fL CALC (80.0-100.0); MEAN CORPUSCULAR HGB 26.5 pG CALC (26.0-32.0); MEAN CORPUSCULAR HGB CONC 32.2 g/dL CAL (32.0-36.0); MONO% 10.1 % (2-13); NEUT# 5.05 thou/uL (2.00-7.15); NEUT% 56.4 % (42-76); RED BLOOD COUNT 3.7 mill/uL (4.20-5.60); RED CELL DISTRI WIDTH 15.7 % (11.5-15.5)
[2023-03-05 06:12] LABS: ALBUMIN 3.4 g/dL (3.2-5.0); ALKALINE PHOSPHATASE 103 u/l (38-126); ANION GAP 13 (6-22 (CALC)); BILIRUBIN, TOTAL 0.5 mg/dL (0.02-1.3); BUN 25 mg/dL (8-23); BUN/CREATININE RATIO 27 (12-20 (CALC)); CALCULATED LDLCHOLESTEROL 63 mg/dL (62-129 (CALC)); CARBON DIOXIDE 25 mmol/l (22-30); CHLORIDE 106 mmol/l (95-108); CHOLESTEROL HDL RATIO 3.1 (<4.4 (CALC)); CREATININE 0.9 mg/dL (0.5-1.0); GFR FOR AFR.AMER. > 60 ML/MIN (>=60 (CALC)); GFR OTHER RACES 59 ML/MIN (>=60 (CALC)); HDL CHOLESTEROL 45 mg/dL (39.0-59.0); POTASSIUM 4.5 mmol/l (3.5-5.1); SGOT/AST 34 u/l (9-36); SODIUM 139 mmol/l (137-146); TOTAL CHOLESTEROL 138 mg/dl (0-199); TOTAL PROTEIN 6.5 g/dL (6.3-8.2); TOTAL TRIGLYCERIDES 153 mg/dl (0-149); VLDL CHOLESTROL 31 mg/dl (0-48 (CALC))
[2023-03-05 07:19] VITALS: BP 133/45
[2023-03-05 09:36] VITALS: BP 120/48
[2023-03-05 10:41] VITALS: BP 136/53
[2023-03-05 11:25] VITALS: BP 139/47
[2023-03-05 11:58] VITALS: BP 139/47
[2023-03-05] MEDS ORDERED: LOSARTAN POTASS50 MG PO (13:35)
[2023-03-05] MEDS ORDERED: TOPROL XL25 MG PO (13:35)
== END 2023-03-05 16:59 | disposition home health service (06) ==
LOC: ED 09:51 → ED-I 12:50 → ED 12:53 → MS2 12:54
PROVIDERS: Emergency Medicine; ADMIT Student in an Organized Health Care Education/Training Program; ATTEND Student in an Organized Health Care Education/Training Program
DX: R07.89 Other chest pain (principal); I11.0 Hypertensive heart disease with heart failure; I50.9 Heart failure, unspecified; I44.7 Left bundle-branch block, unspecified; I08.0 Rheumatic disorders of both mitral and aortic valves; I48.91 Unspecified atrial fibrillation; K21.9 Gastro-esophageal reflux disease without esophagitis
CPT/HCPCS: J1650

== ENCOUNTER 2023-08-26 11:20 | Observation (INO) | payer MEDICARE, OTHER ==
[2023-08-26] VITALS (7 sets, daily range): BP systolic 93–157; BP diastolic 37–68
[~2023-08-26] VITALS: Ht 167.6 cm; Wt 68.2 kg
[~2023-08-26 11:20] MED LIST changes: +PLAVIX75 MG PO; +TOPROL XL25 MG PO
[2023-08-26 11:49] LABS: BASO% 0.8 % (0-3); EOS% 2.5 % (0-8); HEMATOCRIT 35.6 % (37.0-47.0); HEMOGLOBIN 11.1 g/dl (12.0-16.0); IMMATURE GRANULOCYTES 0.1 % (0.0-5.0); LYMPH% 21.9 % (15-41); MEAN CELL VOLUME 90.1 fL CALC (80.0-100.0); MEAN CORPUSCULAR HGB 28.1 pG CALC (26.0-32.0); MEAN CORPUSCULAR HGB CONC 31.2 g/dL CAL (32.0-36.0); MONO% 8.5 % (2-13); NEUT# 6.74 thou/uL (2.00-7.15); NEUT% 66.2 % (42-76); RED BLOOD COUNT 3.95 mill/uL (4.20-5.60); RED CELL DISTRI WIDTH 21.3 % (11.5-15.5)
--- NOTE | 2023-08-26 11:54 | NUR ---
PT ARRIVED BY EMS IN TO ROOM, EVALUATED BY PROVIDED
[2023-08-26 12:01] LABS: ALBUMIN 4.2 g/dL (3.2-5.0); ALKALINE PHOSPHATASE 117 u/l (38-126); BILIRUBIN, TOTAL 0.4 mg/dL (0.02-1.3); BUN 21 mg/dL (8-23); BUN/CREATININE RATIO 27 (12-20 (CALC)); CARBON DIOXIDE 25 mmol/l (22-30); CHLORIDE 110 mmol/l (95-108); CREATININE 0.8 mg/dL (0.5-1.0); ESTIMATED GFR 71 ML/MIN (>=90 (CALC)); SGOT/AST 36 u/l (9-36); SODIUM 138 mmol/l (137-146); TOTAL PROTEIN 8.2 g/dL (6.3-8.2)
[2023-08-26 12:06] LABS: ANION GAP 7 (6-22 (CALC)); POTASSIUM 3.6 mmol/l (3.5-5.1)
--- NOTE | 2023-08-26 12:52 | NUR ---
ASSISTED PT TO BEDSIDE CAMODE, PT HAS NO OTHR NEED, RESULTS PENDING
--- NOTE | 2023-08-26 13:50 | NUR ---
PT SITTING COMFORTABLE IN BED, CHEST PAIN HAS IMPROVED, PROVIDED WITH WARM BALNKET AND, RESULTS PENDING
[2023-08-26] MEDS ORDERED: MAGNESIUM HYDROXIDE 30 ML UDC PO PRN (15:00)
[2023-08-26] MEDS ORDERED: PROTONIX40 M2 PO (15:02)
[2023-08-26] MEDS ORDERED: NORVASC PO (15:04)
--- NOTE | 2023-08-26 15:48 | NUR ---
PT ADMITED, WAITING FOR ROOM, NO NEEDS AT THIS TIME
--- NOTE | 2023-08-26 16:04 | NUR ---
MS CALLED SPOKE WITH ELANA, GAVE PT REPORT, PT TO BE TRANSPORTED TO [facility] [address]
[2023-08-26] MEDS ORDERED: KETOROLAC TROMETHAMINE 15 MG/ML SDV IV PRN (16:20)
--- NOTE | 2023-08-26 19:20 | NUR ---
PATIENT APPEARS RESTING IN BED. ASSESSMENT COMPLETE. NO COMPLAINTS OF CHEST PAIN. NO SIGNS OF DISTRESS. BED REMAINS IN LOW POSITION. CALL BERNARD IN REACH.
[2023-08-26] MEDS ORDERED: ENOXAPARIN SODIUM 40 MG/0.4 ML SYR SC SCH (21:00)
[2023-08-26] MEDS ORDERED: LOSARTAN Potassium 50 MG/TAB PO SCH (21:00)
[2023-08-26] MEDS ORDERED: ATORVASTATIN CALCIUM 40 MG/TAB PO SCH (21:00)
[2023-08-27] VITALS (9 sets, daily range): BP systolic 101–131; BP diastolic 36–56
--- NOTE | 2023-08-27 00:20 | NUR ---
PATIENT REMAINS RESTING IN BED. DENIES NEEDING ANYTHING AT THIS TIME. ABLE TO MAKE NEEDS KNOWN. BED REMAINS IN LOW POSITION. CALL BERNARD IN REACH.
--- NOTE | 2023-08-27 04:28 | NUR ---
PATIENT REMAINS RESTING IN BED. REMAINS ABLE TO MAKE NEEDS KNOWN. AMBULATES WITH ONE ASSIST TO BEDSIDE COMMODE NEEDED. DENIES NEEDING ANYTHING AT THIS TIME. NO COMPLAINTS OF PAIN AT THIS TIME.
[2023-08-27 06:18] LABS: EOS% 3.7 % (0-8); HEMATOCRIT 31.4 % (37.0-47.0); HEMOGLOBIN 9.9 g/dl (12.0-16.0); IMMATURE GRANULOCYTES 0.1 % (0.0-5.0); LYMPH% 25.8 % (15-41); MEAN CELL VOLUME 93.5 fL CALC (80.0-100.0); MEAN CORPUSCULAR HGB 29.5 pG CALC (26.0-32.0); MEAN CORPUSCULAR HGB CONC 31.5 g/dL CAL (32.0-36.0); MONO% 10.5 % (2-13); NEUT# 4.27 thou/uL (2.00-7.15); NEUT% 58.9 % (42-76); RED BLOOD COUNT 3.36 mill/uL (4.20-5.60); RED CELL DISTRI WIDTH 21.2 % (11.5-15.5)
[2023-08-27 06:36] LABS: BILIRUBIN, TOTAL 0.3 mg/dL (0.02-1.3); CHOLESTEROL HDL RATIO 3.1 (<4.4 (CALC)); CREATININE 1.1 mg/dL (0.5-1.0); MAGNESIUM 1.8 mg/dL (1.6-2.3)
[2023-08-27 06:39] LABS: ALBUMIN 3.1 g/dL (3.2-5.0)
[2023-08-27] MEDS ORDERED: FUROSEMIDE 20 MG/TAB PO SCH (09:00)
[2023-08-27] MEDS ORDERED: amLODIPine BESYLATE 5 MG/TAB PO SCH (09:00)
[2023-08-27] MEDS ORDERED: PANTOPRAZOLE SODIUM Sesquihydr 40 MG/TAB PO SCH (09:00)
[2023-08-27] MEDS ORDERED: METOPROLOL SUCCINATE 25 MG/TAB-TOPROL XL PO SCH (09:00)
[2023-08-27] MEDS ORDERED: CLOPIDOGREL BISULFATE 75 MG/TAB TAB PO SCH (09:00)
[2023-08-27] MEDS ORDERED: ASPIRIN 81 MG/TAB PO SCH (09:00)
--- NOTE | 2023-08-27 10:43 | NUR ---
Pt resting in bed with eyes closed. No distess, no complaints will continue to monitor.
[2023-08-27] MEDS ORDERED: METHOCARBAMOL 500 MG/TAB PO PRN (11:25)
[2023-08-27] MEDS ORDERED: LIDOCAINE 4 % PATCH TD SCH (12:00)
[2023-08-27] MEDS ORDERED: LIDOCAINE PAIN RE4 % TD (13:34)
[2023-08-27] MEDS ORDERED: METHOCARBAMOL500 MG PO (13:34)
--- NOTE | 2023-08-27 18:31 | NUR ---
Pt and caregiver reviewed discharge instructions. Questions answered. IV removed. Pt transfered to personal vehicle via wheelchair. Cargiver at side.
--- NOTE | 2023-09-01 13:34 | NUR ---
Discharge follow up call compleated 09/01/23. Pt states she is doing well and improving daily. Pt has medication prescribed at discharge and is taking as directed. Pt has a follow up appoitment with her PCP on Wednesday, . No needs or concerns verbalized at this time.
== END 2023-08-27 18:45 | disposition home or self-care (01) ==
LOC: ED 11:20 → ED-I 11:50 → ED 14:32 → MS2 14:32
PROVIDERS: Family Medicine; Nurse Practitioner Family; ADMIT Student in an Organized Health Care Education/Training Program; ATTEND Student in an Organized Health Care Education/Training Program
DX: R07.81 Pleurodynia (principal); I11.0 Hypertensive heart disease with heart failure; I50.9 Heart failure, unspecified; I48.0 Paroxysmal atrial fibrillation; I44.7 Left bundle-branch block, unspecified; E78.5 Hyperlipidemia, unspecified; K21.9 Gastro-esophageal reflux disease without esophagitis; Z86.718 Personal history of other venous thrombosis and embolism; Z95.828 Presence of other vascular implants and grafts; Z88.6 Allergy status to analgesic agent
CPT/HCPCS: G0378; J1650

== ENCOUNTER 2023-09-29 16:56 | Emergency (ER) | payer MEDICARE, OTHER ==
[2023-09-29] VITALS (11 sets, daily range): BP systolic 129–158; BP diastolic 53–68
[~2023-09-29] VITALS: Ht 167.6 cm; Wt 64.4 kg
[~2023-09-29 16:56] MED LIST changes: +LIDOCAINE PAIN RE4 % TD; +METHOCARBAMOL500 MG PO; +NORVASC PO
[2023-09-29 17:33] LABS: BASO% 0.7 % (0-3); HEMATOCRIT 32.9 % (37.0-47.0); HEMOGLOBIN 10.5 g/dl (12.0-16.0); IMMATURE GRANULOCYTES 0.1 % (0.0-5.0); LYMPH% 28.5 % (15-41); MEAN CELL VOLUME 92.7 fL CALC (80.0-100.0); MEAN CORPUSCULAR HGB 29.6 pG CALC (26.0-32.0); MEAN CORPUSCULAR HGB CONC 31.9 g/dL CAL (32.0-36.0); MONO% 11.5 % (2-13); NEUT# 5.57 thou/uL (2.00-7.15); NEUT% 56.2 % (42-76); RED BLOOD COUNT 3.55 mill/uL (4.20-5.60); RED CELL DISTRI WIDTH 15.6 % (11.5-15.5)
[2023-09-29 17:46] LABS: ALKALINE PHOSPHATASE 139 u/l (38-126); ANION GAP 11 (6-22 (CALC)); BILIRUBIN, TOTAL 0.4 mg/dL (0.02-1.3); BUN 25 mg/dL (8-23); BUN/CREATININE RATIO 26 (12-20 (CALC)); CARBON DIOXIDE 22 mmol/l (22-30); CHLORIDE 110 mmol/l (95-108); CREATININE 0.9 mg/dL (0.5-1.0); ESTIMATED GFR 62 ML/MIN (>=90 (CALC)); POTASSIUM 3.5 mmol/l (3.5-5.1); SGOT/AST 42 u/l (9-36); SODIUM 139 mmol/l (137-146)
[2023-09-29 17:48] LABS: ALBUMIN 4.3 g/dL (3.2-5.0); TOTAL PROTEIN 7.8 g/dL (6.3-8.2)
== END 2023-09-29 19:36 | disposition home or self-care (01) ==
LOC: ED 16:56
PROVIDERS: Family Medicine
DX: R53.1 Weakness (principal); R19.5 Other fecal abnormalities; I11.0 Hypertensive heart disease with heart failure; I50.9 Heart failure, unspecified; I48.91 Unspecified atrial fibrillation; K21.9 Gastro-esophageal reflux disease without esophagitis; Z86.718 Personal history of other venous thrombosis and embolism; Z20.822 Contact with and (suspected) exposure to COVID-19

== ENCOUNTER 2023-10-19 20:23 | Emergency (ER) | payer MEDICARE, OTHER ==
[~2023-10-19] VITALS: Ht 167.6 cm; Wt 64.0 kg
[2023-10-19] VITALS (7 sets, daily range): BP systolic 101–127; BP diastolic 38–82
[2023-10-19 21:43] LABS: BASO% 0.6 % (0-3); EOS% 2.1 % (0-8); HEMATOCRIT 30.9 % (37.0-47.0); HEMOGLOBIN 9.7 g/dl (12.0-16.0); IMMATURE GRANULOCYTES 0.2 % (0.0-5.0); LYMPH% 18.4 % (15-41); MEAN CELL VOLUME 92.5 fL CALC (80.0-100.0); MEAN CORPUSCULAR HGB CONC 31.4 g/dL CAL (32.0-36.0); MONO% 10.4 % (2-13); NEUT# 7.55 thou/uL (2.00-7.15); NEUT% 68.3 % (42-76); RED BLOOD COUNT 3.34 mill/uL (4.20-5.60); RED CELL DISTRI WIDTH 14.3 % (11.5-15.5)
[2023-10-19 21:56] LABS: ALBUMIN 3.7 g/dL (3.2-5.0); ALKALINE PHOSPHATASE 116 u/l (38-126); ANION GAP 9 (6-22 (CALC)); BUN 27 mg/dL (8-23); BUN/CREATININE RATIO 22 (12-20 (CALC)); CARBON DIOXIDE 25 mmol/l (22-30); CHLORIDE 109 mmol/l (95-108); CREATININE 1.2 mg/dL (0.5-1.0); ESTIMATED GFR 44 ML/MIN (>=90 (CALC)); POTASSIUM 3.8 mmol/l (3.5-5.1); SGOT/AST 27 u/l (9-36); SODIUM 139 mmol/l (137-146)
[2023-10-19 21:59] LABS: BILIRUBIN, TOTAL 0.2 mg/dL (0.02-1.3)
[2023-10-19] MEDS ORDERED: SODIUM CHLORIDE 0.9% 1,000 ML IV ONE (22:10)
[2023-10-19 23:44] LABS: URINE BILIRUBIN - DIPSTICK Negative (NEGATIVE); URINE BLOOD DIPSTICK Moderate (NEGATIVE); URINE GLUCOSE - DIPSTICK Negative (NEGATIVE); URINE KETONE Negative (NEGATIVE); URINE PH 5.5 (4.5-8.0); URINE PROTEIN - DIPSTICK Negative (NEG-TRACE); URINE SPECIFIC GRAVITY 1.015; URINE UROBILINOGEN - DIPSTICK 0.2 E.U./dL (0.2)
[2023-10-19 23:46] LABS: URINE COLOR Yellow; URINE LEUK ESTERASE Small (NEGATIVE); URINE NITRITE - DIPSTICK Positive (Negative)
[2023-10-19 23:59] LABS: URINE BACTERIA MANY hpf; URINE MUCUS MANY hpf (NONE-FEW); URINE TRANSITIONAL EPI. CELLS FEW hpf; URINE WBC 20-50 WBC/hpf (0-5)
[2023-10-20] VITALS: BP 117/39
[2023-10-20] MEDS ORDERED: CEPHALEXIN MONOHYDRATE 500 MG/CAP PO ONE (00:10)
[2023-10-20] MEDS ORDERED: KEFLEX500 MG PO (00:15)
[2023-10-20 00:45] VITALS: BP 117/39
== END 2023-10-20 00:45 | disposition home or self-care (01) ==
LOC: ED 20:23
PROVIDERS: Family Medicine
DX: N39.0 Urinary tract infection, site not specified (principal); B96.20 Unspecified Escherichia coli [E. coli] as the cause of diseases classified elsewhere; Z16.12 Extended spectrum beta lactamase (ESBL) resistance; R55 Syncope and collapse; R42 Dizziness and giddiness; I11.0 Hypertensive heart disease with heart failure; I50.9 Heart failure, unspecified; K21.9 Gastro-esophageal reflux disease without esophagitis; I48.91 Unspecified atrial fibrillation; Z87.440 Personal history of urinary (tract) infections; Z86.718 Personal history of other venous thrombosis and embolism

== ENCOUNTER 2023-11-15 08:01 | Observation (INO) | payer MEDICARE, OTHER ==
[2023-11-15] VITALS (29 sets, daily range): BP systolic 127–168; BP diastolic 50–84
[~2023-11-15] VITALS: Ht 167.6 cm; Wt 64.8 kg
[~2023-11-15 08:01] MED LIST changes: +KEFLEX500 MG PO
--- NOTE | 2023-11-15 08:01 | NUR ---
PATIENT ARRIVED TO ER VIA POV. PATIENT WHEELED TO ROOM BY ER STAFF. PATIENT AWAKE, ALERT AND STABLE. NO DISTRESS NOTED. PHYSICIAN AT BEDSIDE.
[2023-11-15] MEDS ORDERED: ASPIRIN 81 MG/TAB PO ONE (08:10)
[2023-11-15 08:22] LABS: BASO% 0.9 % (0-3); EOS% 2.5 % (0-8); HEMOGLOBIN 11.2 g/dl (12.0-16.0); IMMATURE GRANULOCYTES 0.1 % (0.0-5.0); LYMPH% 14.1 % (15-41); MEAN CELL VOLUME 90.7 fL CALC (80.0-100.0); MONO% 9.4 % (2-13); NEUT# 10.12 thou/uL (2.00-7.15); RED BLOOD COUNT 3.86 mill/uL (4.20-5.60); RED CELL DISTRI WIDTH 13.5 % (11.5-15.5)
[2023-11-15 08:39] LABS: ALBUMIN 4.2 g/dL (3.2-5.0); ALKALINE PHOSPHATASE 123 u/l (38-126); ANION GAP 8 (6-22 (CALC)); BUN 26 mg/dL (8-23); BUN/CREATININE RATIO 26 (12-20 (CALC)); CARBON DIOXIDE 27 mmol/l (22-30); CHLORIDE 110 mmol/l (95-108); ESTIMATED GFR 55 ML/MIN (>=90 (CALC)); POTASSIUM 4.2 mmol/l (3.5-5.1); SGOT/AST 38 u/l (9-36); SODIUM 140 mmol/l (137-146)
[2023-11-15 08:42] LABS: BILIRUBIN, TOTAL 0.4 mg/dL (0.02-1.3)
[2023-11-15 08:51] LABS: URINE BILIRUBIN - DIPSTICK Negative (NEGATIVE); URINE BLOOD DIPSTICK Trace-intact (NEGATIVE); URINE GLUCOSE - DIPSTICK Negative (NEGATIVE); URINE KETONE Negative (NEGATIVE); URINE PH 5.5 (4.5-8.0); URINE PROTEIN - DIPSTICK Negative (NEG-TRACE); URINE SPECIFIC GRAVITY 1.015; URINE UROBILINOGEN - DIPSTICK 0.2 E.U./dL (0.2)
[2023-11-15 08:56] LABS: URINE COLOR Yellow; URINE LEUK ESTERASE Moderate (NEGATIVE); URINE NITRITE - DIPSTICK Positive (Negative)
[2023-11-15 08:59] LABS: URINE BACTERIA MANY hpf; URINE SQUAMOUS EPITHELIAL CELL FEW EPI/hpf (0-FEW); URINE WBC TNTC WBC/hpf (0-5)
[2023-11-15] MEDS ORDERED: cefTRIAXone SODIUM 2 GM in SODIUM CHLORIDE 0.9% 100 ML IV ONE (10:00)
--- NOTE | 2023-11-15 11:29 | NUR ---
PT RESTING, NO NEEDS AT THIS TIME.
[2023-11-15] MEDS ORDERED: METOPROLOL SUCC50 MG PO (11:50)
[2023-11-15] MEDS ORDERED: MAGNESIUM HYDROXIDE 30 ML UDC PO PRN (11:50)
[2023-11-15] MEDS ORDERED: SODIUM CHLORIDE 0.9% 1,000 ML IV PRN (11:50)
[2023-11-15] MEDS ORDERED: PANTOPRAZOLE SODIUM Sesquihydr 40 MG/TAB PO SCH (12:30)
[2023-11-15] MEDS ORDERED: FUROSEMIDE 20 MG/TAB PO SCH (12:30)
[2023-11-15] MEDS ORDERED: LOSARTAN Potassium 50 MG/TAB PO SCH (12:30)
[2023-11-15] MEDS ORDERED: METOPROLOL SUCCINATE 50 MG/TAB PO SCH (12:30)
[2023-11-15] MEDS ORDERED: amLODIPine BESYLATE 5 MG/TAB PO SCH (12:30)
--- NOTE | 2023-11-15 13:12 | NUR ---
PATIENT AWAKE,ALERT AND STABLE. NO DISTRESS NOTED. PATIENT HAS NO COMPLAINTS ATTHIS TIME. WILL CONTINUE TO MONITOR.
--- NOTE | 2023-11-15 14:59 | NUR ---
REPORT GIVEN TO BELKIS HUITRON. PATIENT TRANSPORTED TO 279 BY NURSE.
--- NOTE | 2023-11-15 15:04 | NUR ---
PT ARRIVED TO THE UNIT VIA WHEELCHAIR TRANSPORT AND WAS ABLE TO WALK TO THE BATHROOM AND BED WITH SOMEONE NEAR FOR SAFETY. PT IS AOX4, RESPIRATIONS ARE EVEN AND UNLABORED, LUNGS ARE CLEAR, BOWEL SOUNDS ARE ACTIVE, PEDAL PULSES PALPABLE TO TOUCH. PT DENIES PAIN AT THIS TIME.
--- NOTE | 2023-11-15 20:00 | NUR ---
RECEIVED REPORT FROM NURSE ELANA, PATIENT ALERT ORIENTED ABLE TO MAKE NEEDS KNOWN, C/O CRAMPING FROM JESSI DILLON, REQUESTED TO REMOVE TONIGHT, STAS STATED SHE IS NOT ALLERGIC TO TYLENOL AND TAKES IN AT HOME ALL THE TIME, ITS ALL SHE CAN TAKE TYLENOL AND TRAMADOL, PATIENT IV ON LAC G 20 PATENT FLUSHES WELL, NOT IN DSITRESS, CALL LIGHT IN REACHED.
[2023-11-15] MEDS ORDERED: ENOXAPARIN SODIUM 40 MG/0.4 ML SYR SC SCH (21:00)
[2023-11-15] MEDS ORDERED: ATORVASTATIN CALCIUM 40 MG/TAB PO SCH (21:00)
[2023-11-15] MEDS ORDERED: ACETAMINOPHEN 325 MG/TAB PO PRN (23:35)
[2023-11-16] VITALS: BP 109/44
--- NOTE | 2023-11-16 | NUR ---
PATIENT RESTING IN BED, NOT IN DISTRESS, BREATHING UNLABORED, CALL LIGHT IN REACHED.
[2023-11-16 04:00] VITALS: BP 127/47
--- NOTE | 2023-11-16 04:00 | NUR ---
PATIENT AWAKE, PATINET ASSISTED TO THE STANDING SCALE, PATIENT WEIGHED, PATINET NOT IN DISTRESS, CALL LIGHT IN REACHED.
[2023-11-16 06:41] LABS: BASO% 0.8 % (0-3); EOS% 3.3 % (0-8); HEMOGLOBIN 10.8 g/dl (12.0-16.0); IMMATURE GRANULOCYTES 0.1 % (0.0-5.0); LYMPH% 14.1 % (15-41); MEAN CELL VOLUME 90.7 fL CALC (80.0-100.0); MEAN CORPUSCULAR HGB 28.8 pG CALC (26.0-32.0); MEAN CORPUSCULAR HGB CONC 31.8 g/dL CAL (32.0-36.0); MONO% 10.5 % (2-13); NEUT# 8.09 thou/uL (2.00-7.15); NEUT% 71.2 % (42-76); RED BLOOD COUNT 3.75 mill/uL (4.20-5.60); RED CELL DISTRI WIDTH 13.6 % (11.5-15.5)
[2023-11-16 06:47] LABS: ALBUMIN 3.4 g/dL (3.2-5.0); CHOLESTEROL HDL RATIO 2.9 (<4.4 (CALC)); CREATININE 1.2 mg/dL (0.5-1.0); POTASSIUM 4.3 mmol/l (3.5-5.1); TOTAL PROTEIN 6.4 g/dL (6.3-8.2)
[2023-11-16 06:51] LABS: BILIRUBIN, TOTAL 0.2 mg/dL (0.02-1.3)
[2023-11-16 07:24] VITALS: BP 149/57
[2023-11-16] MEDS ORDERED: SODIUM CHLORIDE 0.9% 1,000 ML IV PRN (07:45)
[2023-11-16] MEDS ORDERED: 0.9% NaCL W/KCL 20 MEQ 1,000 ML IV PRN (08:40)
--- NOTE | 2023-11-16 08:55 | NUR ---
pateint a/o x3; room air; breathing unlabored and even; denied any pain; denied needing anything; denied any n/d/v at this time; medication reviwed; tele lead intact; iv site clean and intact saline locked; patient sitting in semi morales postion in bed; call light within reach,verbalize understanding on how to use, personal items iwthin reach, bed in lowest postion
[2023-11-16] MEDS ORDERED: ASPIRIN 81 MG/TAB PO SCH (09:00)
[2023-11-16 10:43] VITALS: BP 122/54
[2023-11-16] MEDS ORDERED: MAGNESIUM OXIDE 400 MG/TAB PO SCH (11:00)
[2023-11-16] MEDS ORDERED: ONDANSETRON HCl 4 MG/2 ML SDV IV PRN (11:05)
--- NOTE | 2023-11-16 12:23 | NUR ---
patient a/o x3; sitting in chiar next to bed; room air breathing unlabored and even; denied any pain; denied any n/d/v at this time; tele leads intact; iv site clean and intact saline locked with no issues; mediation reviewed, no complaints at this time; call light within reach,verbalized understanding on how to use, personal items within reach, bed in lowest postion
[2023-11-16 15:40] VITALS: BP 115/47
--- NOTE | 2023-11-16 16:55 | NUR ---
patient a/o x3; room air; breathing unlabored and even; pateint sitting in chiar next to bed; denied any pain ; denied any n/d/v; no complaints; iv site clean and intact saline locked; tele leads intact; no s/s of distress at this time; call light within reach,verbalized understanding on how to use, personal items within reach, bed in lowest postion
[2023-11-16 18:30] VITALS: BP 135/53
--- NOTE | 2023-11-16 20:00 | NUR ---
BEDSIDE SHIFT REPORT COMPLETED. ALERT ORIENTED X4. RESP EVEN AND UNLABORED. NO C/O NOTED CALL LIGHT IN REACH.
[2023-11-17] VITALS (8 sets, daily range): BP systolic 119–142; BP diastolic 40–56
--- NOTE | 2023-11-17 | NUR ---
RESTING IN BED, ALERT ORIENTED X3. DENIES PAIN OR DISCOMFORT. ABLE TO MAKE NEEDS KNOWN. 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 CALL LIGHT IN REACH.
[2023-11-17 05:43] LABS: BASO% 0.7 % (0-3); EOS% 3.7 % (0-8); HEMATOCRIT 33.5 % (37.0-47.0); HEMOGLOBIN 10.4 g/dl (12.0-16.0); IMMATURE GRANULOCYTES 0.2 % (0.0-5.0); LYMPH% 14.6 % (15-41); MEAN CELL VOLUME 90.5 fL CALC (80.0-100.0); MEAN CORPUSCULAR HGB 28.1 pG CALC (26.0-32.0); MONO% 9.9 % (2-13); NEUT# 8.8 thou/uL (2.00-7.15); NEUT% 70.9 % (42-76); RED BLOOD COUNT 3.7 mill/uL (4.20-5.60); RED CELL DISTRI WIDTH 13.4 % (11.5-15.5)
--- NOTE | 2023-11-17 05:56 | NUR ---
RESTING IN BED. NO C/O NOTED. CALL LIGHT IN REACH. ABLE TO MAKE NEEDS KNOWN.
[2023-11-17 06:16] LABS: ALBUMIN 3.3 g/dL (3.2-5.0); CREATININE 0.9 mg/dL (0.5-1.0); POTASSIUM 4.4 mmol/l (3.5-5.1); TOTAL PROTEIN 6.5 g/dL (6.3-8.2)
[2023-11-17 06:19] LABS: BILIRUBIN, TOTAL 0.3 mg/dL (0.02-1.3)
--- NOTE | 2023-11-17 07:42 | NUR ---
PT IS AOX4, RESPIRATIONS ARE EVEN AND UNLABORED, PT STATES SHE "DEVLOPED A COUGH SINCE YESTERDAY" LUNGS AT BILATERAL BASES ARE CLEAR, BILATERAL UPPER LUNGS SOUND COURSE, BOWEL SOUNDS ARE ACTIVE, PEDAL PULSES ARE PALPABLE TO TOUCH, PT DENIES PAIN AT THIS TIME.
[2023-11-17] MEDS ORDERED: GUAIFENESIN 600 MG/TAB PO SCH (09:00)
--- NOTE | 2023-11-17 12:12 | NUR ---
PT SITTING UP IN BED EATING LUNCH AT THIS TIME. PT REPORTS "I FEEL MUCH BETTER SINE I GOT THE MUCINEX"
--- NOTE | 2023-11-17 20:00 | NUR ---
RESTING IN BED. NO C/O NOTED. CALL LIGHT IN REACH. BEDSIDE SHIFT REPORT COMPLETED.
[2023-11-18] VITALS: BP 121/40
--- NOTE | 2023-11-18 | NUR ---
USES BSC. NO C/O PAIN. ABLE TO MAKE NEEDS KNOWN. CALL LIGHT IN REACH.
[2023-11-18 04:00] VITALS: BP 123/53
[2023-11-18 04:27] VITALS: BP 123/53
[2023-11-18 05:07] LABS: BASO% 0.6 % (0-3); EOS% 3.5 % (0-8); HEMATOCRIT 33.2 % (37.0-47.0); HEMOGLOBIN 10.5 g/dl (12.0-16.0); IMMATURE GRANULOCYTES 0.2 % (0.0-5.0); LYMPH% 14.8 % (15-41); MEAN CELL VOLUME 91.5 fL CALC (80.0-100.0); MEAN CORPUSCULAR HGB 28.9 pG CALC (26.0-32.0); MEAN CORPUSCULAR HGB CONC 31.6 g/dL CAL (32.0-36.0); MONO% 10.2 % (2-13); NEUT# 8.99 thou/uL (2.00-7.15); NEUT% 70.7 % (42-76); RED BLOOD COUNT 3.63 mill/uL (4.20-5.60); RED CELL DISTRI WIDTH 13.5 % (11.5-15.5)
[2023-11-18 05:14] LABS: ALBUMIN 3.2 g/dL (3.2-5.0); BILIRUBIN, TOTAL 0.3 mg/dL (0.02-1.3); CREATININE 0.8 mg/dL (0.5-1.0); POTASSIUM 4.5 mmol/l (3.5-5.1); TOTAL PROTEIN 6.3 g/dL (6.3-8.2)
--- NOTE | 2023-11-18 06:00 | NUR ---
RESTED WELL DURING NIGHT. CALL LIGHT IN REACH. NO C/O NOTED
[2023-11-18 07:28] VITALS: BP 137/55
--- NOTE | 2023-11-18 08:00 | NUR ---
PT IS SITTING IN CHAIR BRUSHING TEETH. PT IS AOX4, VSS, NO COMPLAINTS AT THIS TIME. PT ASSESSMENT COMPLETED AND PT UPDATED ON PLAN OF CARE. PT STATES SHE IS NOT IN ANY PAIN AND SLEPT WELL LAST NIGHT. CALL LIGHT IN REACH
--- NOTE | 2023-11-18 08:13 | NUR ---
patient sitting up in recliner with staff assistance.
[2023-11-18] MEDS ORDERED: LEVOFLOXACIN500MG PO (10:49)
[2023-11-18 11:14] VITALS: BP 101/79
--- NOTE | 2023-11-18 13:43 | NUR ---
PT DCD VIA MD, EDUCATED ON MEDICATIONS AND FOLLOWUPS. PT VERBALIZED UNDERSTANDING, IV REMOVED CATH TIP INTACT AND BLEEDING CONTROLLED. ALL BELONGINGS WITH PATIENT. PT WHEELED BY DIGITAL ASSET MANAGER DOWNSTAIRS TO CAR.
== END 2023-11-18 13:43 | disposition home health service (06) ==
LOC: ED 08:01 → ED-I 10:50 → ED 11:20 → MS2 11:21
PROVIDERS: Family Medicine; Nurse Practitioner Family; ADMIT Internal Medicine; ATTEND Internal Medicine
DX: R07.9 Chest pain, unspecified (principal); N39.0 Urinary tract infection, site not specified; B96.20 Unspecified Escherichia coli [E. coli] as the cause of diseases classified elsewhere; N17.9 Acute kidney failure, unspecified; E86.0 Dehydration; I11.0 Hypertensive heart disease with heart failure; I50.9 Heart failure, unspecified; I48.91 Unspecified atrial fibrillation; I44.7 Left bundle-branch block, unspecified; R25.2 Cramp and spasm; K21.9 Gastro-esophageal reflux disease without esophagitis; T36.1X6A Underdosing of cephalosporins and other beta-lactam antibiotics, initial encounter; Z95.828 Presence of other vascular implants and grafts; Z86.718 Personal history of other venous thrombosis and embolism; Z91.128 Patient's intentional underdosing of medication regimen for other reason
CPT/HCPCS: G0378; J1650

== ENCOUNTER 2024-03-23 14:50 | Emergency (ER) | payer MEDICARE, OTHER ==
[~2024-03-23] VITALS: Ht 167.6 cm; Wt 68.0 kg
[~2024-03-23 14:50] MED LIST changes: +LEVOFLOXACIN500MG PO
[2024-03-23 15:06] VITALS: BP 149/79
[2024-03-23] MEDS ORDERED: Meropenem 1 GM in SODIUM CHLORIDE 0.9% 100 ML IV ONE (15:10)
== END 2024-03-23 15:50 | disposition left against medical advice (07) ==
LOC: ED 14:50 → LWOBS 15:50
DX: Z53.21 Procedure and treatment not carried out due to patient leaving prior to being seen by health care provider (principal)